=== PATIENT | female | born 1955 | race African-American/Black ===

== ENCOUNTER → 2017-05-07 | Outpatient (CLI) | payer OTHER ==
[2016-06-16 23:02] VITALS: BP 157/98
[~2017-05-07] MED LIST: BRIM5DRO3 EACHEYE; CIPR250T30 PO; ERGO500027 PO; FOLI1TAB16 PO; IOHEXOL 300 MG/ML 75 ML VIAL IV ONE; LATA2.5D3 EACHEYE; LORA10TA3 PO; MAGN400T3 PO; ONDA4TAB10 PO; OXYC30TA PO; PRED5DRO16 EACHEYE; PROAIR HFA8.5 GM INH
--- NOTE | 2017-05-07 12:51 | RAD ---
CT of the abdomen and pelvis with and without contrast, 05/07/2017: History: Abnormal liver enzymes Multidetector CT imaging was performed prior to and following an IV bolus injection of iodinated contrast material. The precontrast scans were obtained through the abdomen. Postcontrast scans of the abdomen were obtained in arterial, portal venous and delayed phases. The portal venous phase scans were extended down into the pelvis. No oral contrast material was administered for this exam. The gallbladder is surgically absent. There is no evidence of hepatic steatosis. There is a tiny 9 x 4 mm subcapsular low density lesion present inferiorly in the right lobe of the liver. This is best demonstrated on image 39 of series #10. It demonstrates a low internal CT number suggesting a cyst. There is an additional tiny 4 mm low-density lesion in the anterior aspect of the right lobe as seen on image 24 series #9. It is too small to definitively characterize but is also probably a cyst. There is no evidence of bile duct dilatation. The pancreas is unremarkable. The spleen is of normal size. No renal or adrenal abnormality is detected. There is moderate aortoiliac calcific plaquing. There is no evidence of aneurysm. No abdominal or pelvic adenopathy is evident. The bowel loops are not dilated. There are surgical sutures in the cecal region. No free fluid or free air is evident in the abdomen or pelvis. IMPRESSION: 1. Probable tiny hepatic cysts. 2. Status post cholecystectomy. 3. No acute abdominal or pelvic abnormality is detected. PQRS Compliance Statement: One or more of the following individualized dose reduction techniques were utilized for this examination: 1. Automated exposure control 2. Adjustment of the mA and/or kV according to patient size 3. Use of iterative reconstruction technique
== END | disposition home or self-care (01) ==
LOC: CT 09:50
PROVIDERS: ATTEND Nurse Practitioner Gerontology
DX: K76.9 Liver disease, unspecified (principal); J45.909 Unspecified asthma, uncomplicated; I10 Essential (primary) hypertension; F17.200 Nicotine dependence, unspecified, uncomplicated
CPT/HCPCS: 74178; Q9967

== ENCOUNTER 2017-05-27 22:19 | Emergency (ER) | payer OTHER ==
[~2017-05-27] VITALS: Ht 162.6 cm; Wt 64.4 kg
[~2017-05-27 22:19] MED LIST changes: -IOHEXOL 300 MG/ML 75 ML VIAL IV ONE
[2017-05-27] MEDS ORDERED: KETOROLAC 15 MG/ML VIAL. IV ONE (23:00)
--- NOTE | 2017-05-28 00:53 | PHYS DOC ---
Past Medical History Past Medical History: Asthma, COPD, GERD, Hypertension, Pneumonia Additional Past Medical Histor: Degenerative Glaucoma, muscle spasms leg/feet, lower back pain Past Surgical History: Cholecystectomy, Hysterectomy Additional Past Surgical Histo: INTESTINE SX Alcohol Use: None Drug Use: None Adult General Chief Complaint Chief Complaint: HIP PAIN HPI HPI 61-year-old female with no prior history of hip or pelvis pain not complaining of pain in the right hip area. Patient states she did not fall or have any known injuries to the area. Her right hip is sore with palpation and movement of the leg. His thigh pain swelling or asymmetry. The leg is not painful at all nor is her buttock or low back. No swelling or skin changes. Review of Systems Review of Systems Constitutional: Denies fever or chills [] Eyes: Denies change in visual acuity, redness, or eye pain [] HENT: Denies nasal congestion or sore throat [] Respiratory: Denies cough or shortness of breath [] Cardiovascular: No additional information not addressed in HPI [] GI: Denies abdominal pain, nausea, vomiting, bloody stools or diarrhea [] : Denies dysuria or hematuria [] Musculoskeletal: Denies back pain or joint pain [] Integument: Denies rash or skin lesions [] Neurologic: Denies headache, focal weakness or sensory changes [] Endocrine: Denies polyuria or polydipsia [] Current Medications Current Medications Current Medications Medications (Trade) Dose Ordered Sig/[facility] Start Time Stop Time Status Last Admin Dose Admin Ketorolac Tromethamine (Toradol) 15 mg 1X ONCE 05/27/17 23:00 05/27/17 23:01 DC 05/28/17 00:02 15 MG Allergies Allergies Allergies Coded Allergies Type Severity Reaction Last Updated Verified aspirin Adverse Reaction Intermediate gi upset 06/16/16 Yes Physical Exam Physical Exam Well-appearing 61-year-old female no acute distress mild soft tissue tenderness over the right iliac crest. No CVA tenderness. No spinal tenderness. No anesthesia. Negative straight leg raise bilaterally. Stable nontender Main or pelvis. No tenderness at the pubic symphysis. Normal patient's range of motion of both hips with no pain or tenderness over the greater trochanters Constitutional: Well developed, well nourished, no acute distress, non-toxic appearance. [] HENT: Normocephalic, atraumatic, bilateral external ears normal, oropharynx moist, no oral exudates, nose normal. [] Eyes: PERRLA, EOMI, conjunctiva normal, no discharge. [] Neck: Normal range of motion, no tenderness, supple, no stridor. [] Cardiovascular:Heart rate regular rhythm, no murmur [] Lungs & Thorax: Bilateral breath sounds clear to auscultation [] Abdomen: Bowel sounds normal, soft, no tenderness, no masses, no pulsatile masses. [] Skin: Warm, dry, no erythema, no rash. [] Back: No tenderness, no CVA tenderness. [] Extremities: No tenderness, no cyanosis, no clubbing, ROM intact, no edema. [] Neurologic: Alert and oriented X 3, normal motor function, normal sensory function, no focal deficits noted. [] Psychologic: Affect normal, judgement normal, mood normal. [] Current Patient Data Vital Signs Vital Signs Date Time Temp Pulse Resp B/P (MAP) Pulse Ox O2 Delivery O2 Flow Rate FiO2 05/28/17 00:05 75 18 126/79 (95) 95 Room Air 05/27/17 22:28 98.5 98.5 EKG EKG [] Radiology/Procedures Radiology/Procedures [] Course & Med Decision Making Course & Med Decision Making Pertinent Labs and Imaging studies reviewed. (See chart for details) Signs and symptoms consistent with soft tissue tenderness and pain of the right iliac crest distribution. Findings are consistent possible subclinical contusion but patient has no ecchymosis swelling hematoma or skin changes. X- rays of pelvis and hip unremarkable. As patient is well-appearing and has no evidence of cauda equina syndrome or radiculopathy, no asymmetry or clinical suggestion of DVT or ramifications thereof, no further workup or treatment is indicated at this time. Patient agrees with outpatient follow-up. Strict return precautions given. [] Dragon Disclaimer Dragon Disclaimer This electronic medical record was generated, in whole or in part, using a voice recognition dictation system. Departure Departure Disposition: 01 HOME, SELF-CARE Condition: STABLE Referrals: UNKNOWN PCP NAME (PCP) Patient Instructions: Hip Pain Additional Instructions: It is not clear what has caused the soft tissue tenderness in her right hip area today. Your pelvis and hip x-rays show no fracture or bony lesion. It is possible that you may have inadvertently caused a contusion or bruise to her right hip area and this may account for her soreness. It even possible that this could've happened from sleeping on the hip did take ibuprofen and Tylenol as needed for pain and follow up with your doctor tomorrow for reevaluation and to discuss the need for further workup or referral as needed. Return immediately for new severe worsening symptoms SUJEY DE LA CRUZ MD May 28, 2017 00:53
[2017-05-28 01:14] VITALS: BP 106/65
--- NOTE | 2017-05-28 07:20 | RAD ---
Two-view right hip study and AP view of the pelvis History: Worsening right hip pain since Thursday morning. Right hip: No acute fracture or dislocation or osteolytic process is seen. No significant arthritic change is seen. Pelvis: Left hip joint is unremarkable. No diastases of the symphysis pubis or either SI joint is seen. No acute fracture or osteolytic process is seen. IMPRESSION: No significant osseous abnormality.
== END 2017-05-28 01:17 | disposition home or self-care (01) ==
LOC: ER 22:19
DX: M25.551 Pain in right hip (principal); M79.89 Other specified soft tissue disorders; J44.9 Chronic obstructive pulmonary disease, unspecified; K21.9 Gastro-esophageal reflux disease without esophagitis; I10 Essential (primary) hypertension; H40.9 Unspecified glaucoma; Z90.49 Acquired absence of other specified parts of digestive tract; Z90.710 Acquired absence of both cervix and uterus; Z87.01 Personal history of pneumonia (recurrent); Z88.6 Allergy status to analgesic agent
CPT/HCPCS: 73502; 96374; 99284; J1885

== ENCOUNTER → 2017-10-26 | Outpatient (CLI) | payer OTHER ==
[2017-10-04 20:08] VITALS: BP 142/85
[~2017-10-26] MED LIST changes: +CYCL10TA2 PO; +HYDR-971 PO; +PRED20TA PO
--- NOTE | 2017-10-26 17:16 | PAIN ---
DATE OF SERVICE: 10/26/2017 DIAGNOSES: 1. Lumbar radiculopathy with lumbar degenerative disk disease. 2. Cervical radiculopathy with cervical degenerative disk disease. HISTORY OF PRESENT ILLNESS: The patient is a 62-year-old female who returns for followup status post previous lumbar epidural steroid injections, last seen 05/28/2016. The patient did very well with about an estimated 50% improvement with her low back and right lower extremity as well as her neck and shoulder pain. The patient reports it has been returning now over the past 6-8 months or so, increasing in intensity, rated a 10 on a scale of 10 at its worst, at its average and at its least and is a 10 on a scale 10 today. The patient reports it is tingling, burning, stabbing, aching, sharp, shooting, unbearable, becoming more severe, worse with standing, walking, change in positions, radiating from pain in the low back and right lower extremity, mostly in the posterior gluteus, posterior thigh, posterior calf in a radicular pattern, the L5-S1 dermatome, even some S2 overlap, also in the bilateral shoulders, neck and upper extremities in a C5-C6 and C6-C7 distribution bilaterally, worse on the right than the left with some tingling and numbness in the hands and some weakness as well with repetitive motion, especially on the right hand. The patient reports it awakens her from sleep at least once or twice a night. She has to reposition, get out of bed, take pain medication she needs to get back to sleep. It is worse with standing, walking, changing positions, also reaching overhead with her neck and shoulders pain as well. The patient reports no loss of motor function, no bowel or bladder incontinence but significant fatigability in both of the upper extremities as well as the right lower extremity. PAST MEDICAL HISTORY: Significant for asthma, cigarette smoking, diarrhea, headaches, arthritis, strokes. PREVIOUS SURGERY: Includes cataract extraction on the right, multiple laser and eye surgeries, bowel obstruction and resection 1997, partial hysterectomy, tendon repair of the wrist, cholecystectomy. CURRENT MEDICATIONS: Reviewed including ProAir inhaler, Zofran, loratadine, vitamin D2, magnesium, and folic acid. ALLERGIES: THE PATIENT IS ALLERGIC TO ASPIRIN. FAMILY HISTORY: Significant for no major conditions she is aware of. SOCIAL HISTORY: The patient smokes still about 8-10 cigarettes a day on average, does not drink alcohol or use any other illegal illicit drugs or other substances. The patient is single, lives with her adopted son who is about 9 years old and lives locally in [place], [place]. REVIEW OF SYSTEMS: Positive for those items mentioned in history of present illness. All systems reviewed and otherwise negative. It is complete, full and well documented on the patient's chart. PHYSICAL EXAMINATION: VITAL SIGNS: Today, the patient's blood pressure is 131/83, pulse 96, respirations are 18, temperature 98.1 degrees Fahrenheit. Height 5 feet 4 inches, weighs 149 pounds. GENERAL: The patient is awake, alert, oriented, appropriate, very pleasant demeanor. HEENT: Shows normocephalic, atraumatic. Extraocular movements are intact, symmetrical. Oral cavity: Mucous membranes moist and pink. Dentition is intact. NECK: Shows anterior throat supple without palpable lymphadenopathy noted. Swallow reflex is symmetrical. CHEST: Shows normal with inspection. Breath sounds clear to auscultation bilaterally. HEART: Shows S1, S2 clear. No murmurs auscultated. ABDOMEN: Soft, nontender, nondistended. No palpable organomegaly is noted. No rebound or guarding demonstrated. BACK: The patient's back shows spine grossly midline. Normal appearing thoracic kyphosis well as lumbar lordotic curvature. No previous bruises, lesions, rashes or scars are noted. The patient's rotational motion shows good rotation greater than 10 degrees, right and left lateral as well as extension and flexion of lumbar spine. Cervical spine shows good rotation past 45 degrees right and left as well as full extension, full forward flexion as well. EXTREMITIES: Show lower extremity deep tendon reflexes at 1+ in the patellar and tendo calcaneus tendons. Upper extremities are 2+ biceps and triceps tendons. Motor exam in the lower extremities is approximately 4 on a scale 5 on the right and 5/5 on the left dorsiflexion, extension, quadriceps and hamstring flexion. Upper extremities show a 4/5 guidance director strength right, 5/5 on the left. Bicep and tricep flexion is 4/5, right and 5/5, left as well. No peripheral edema is noted. No clubbing, no cyanosis. Peripheral pulses are 2+ radial, 1+ posterior tibial. No peripheral edema is noted bilaterally upper or lower extremities. Options were discussed with the patient. The patient's old chart was reviewed as her current medication regimen updated. Current review of systems is updated today as well. We will preauthorize the patient for a lumbar epidural steroid injection as she has done very well with these in the past with about a 6-8 week improvement after the last injection by over 50%, but again the patient with radicular symptoms in the upper and lower extremities in the L5-S1 dermatomes in the low back and right leg and in the C5-C6, C6-C7 dermatomes in the bilateral upper extremities, right greater than left, again with history of degenerative disk disease in both cervical and lumbar regions. The patient has been doing physical therapy on her own. She did do some formal physical therapy about a year and a half ago, is doing the exercises and stretching and strengthening on her own since and I encouraged her to maintain the exercises also to do some walking if she is able to as well as stretching before and after and to continue her therapy exercises as noted. The patient will do so. We will wait for preauthorization and have her return for lumbar epidural steroid injection in approximately 1 week. JEWELS CONCEPCION MD DR: JOAN/judy JOB#: [id number] / [id number] [facility] TRINA ROBERTS NP
== END | disposition home or self-care (01) ==
LOC: PNCL 08:41
PROVIDERS: ATTEND Anesthesiology
DX: M51.16 Intervertebral disc disorders with radiculopathy, lumbar region (principal); Z90.49 Acquired absence of other specified parts of digestive tract; Z86.73 Personal history of transient ischemic attack (TIA), and cerebral infarction without residual deficits
CPT/HCPCS: 99212

== ENCOUNTER → 2017-11-09 | Outpatient (CLI) | payer OTHER ==
[2017-10-04 20:08] VITALS: BP 142/85
[~2017-11-09] MED LIST changes: +IOHEXOL 180 MG/ML 10 ML VIAL. ONE; +methylPREDNISolone ACETATE 40 MG/ML VIAL. ONE; +methylPREDNISolone ACETATE 80 MG/ML VIAL. ONE
--- NOTE | 2017-11-09 10:31 | PN ---
DATE: 11/09/2017 PROGRESS NOTE FOR PAIN CLINIC DIAGNOSES: 1. Lumbar radiculopathy with lumbar degenerative disk disease. 2. Cervical radiculopathy with cervical degenerative disk disease. HISTORY OF PRESENT ILLNESS: The patient is a 62-year-old female who returns for followup status post initial evaluation and preauthorization for lumbar epidural steroid injection today. The patient has obtained this and would like to proceed. Still significant pain in the low back and into the right lower extremity as it was previously, with pain radiating both to the posterior gluteus and thighs, worse on the right than the left, anterior medial thigh as well as the posterior calf and posterior foot. Tingling, burning, stabbing, aching, sharp, tight shooting pain, becoming unbearable and more constant. The patient reports her pain is a 10 on a scale of 10 at its worst, 9 on average and 9 at its least. It is a 9 today. The patient reports no new motor or sensory deficits. No new bowel or bladder continence, but has significant difficulty sleeping and only sleeps one hour at a time, has to reposition, apply heat, get out of bed, change positions or take pain medication. The patient is requesting pain medication today and requests by specifics, oxycodone 30 mg. I informed her that I would not prescribe anything this high for her as we are not seeing her as a long-term patient and would prescribe Percocet for her while we are doing her procedures, while we are treating her, but not on a long-term basis. The patient verbalized understanding and we will proceed with lumbar epidural steroid injection today. PHYSICAL EXAMINATION: VITAL SIGNS: The patient's blood pressure is 136/86, pulse 98, respirations 16 and temperature 98.4 degrees Fahrenheit. Weight 152 pounds. GENERAL: The patient is awake, alert, oriented, appropriate, very pleasant demeanor. HEENT: Head shows normocephalic, atraumatic. Extraocular muscles are intact and symmetrical. Oral cavity, mucous membranes moist and pink. Dentition is intact. NECK: Shows anterior throat supple, without palpable lymphadenopathy noted. Swallow reflex symmetrical. CHEST: Shows normal on inspection. Breath sounds clear to auscultation bilaterally. HEART: Shows S1, S2 clear. No murmurs auscultated. ABDOMEN: Soft, nontender, nondistended. No palpable organomegaly is noted. BACK: Shows spine grossly in the midline. Normal-appearing thoracic kyphosis and lumbar lordotic curvature. No previous bruises, lesions, rashes or scars. Lumbar paraspinous muscle shows symmetrical on inspection. With palpation, it shows moderate tenderness throughout the upper, middle and lower distribution bilaterally, only diffusely without radiation and without trigger points. Good rotational motion both laterally as well as extension and flexion. EXTREMITIES: Lower extremities show deep tendon reflexes at 1+ in the patellar and tendo calcaneus tendons are equal. Motor exam is approximately 4 on a scale of 5 on the right and 5/5 on the left with dorsiflexion and extension. Peripheral pulses are 1+ posterior tibial. No peripheral edema is noted. Options were discussed with the patient. The patient's old chart was reviewed as her current medication regimen updated. Current review of systems updated today as well and we will proceed with a lumbar epidural steroid injection, the first in this series. Risks were again discussed including, but not limited to bleeding, infection, possibility of epidural hematoma, subsequent neurologic compromise, dural puncture, headaches, spinal cord and/or nerve damage, side effects of steroid medication and poor results regarding pain control. The patient understands and wishes to proceed. The patient will return to clinic in approximately 2 weeks for followup, was counseled on return appointment, activity level and side effects to be aware of. DIAGNOSES: Lumbar radiculopathy with lumbar degenerative disk disease. PROCEDURES: Lumbar epidural steroid injection, translaminar approach at the L5-S1 level using C-arm fluoroscopic guidance under sterile prep and drape using local anesthetic. MEDICATION INJECTED: A total of 120 mg Depo-Medrol plus 10 mL of preservative-free normal saline and 2 mL of Isovue for contrast. CONDITION AT DISCHARGE: Stable. The patient tolerated the procedure well, had no complications. The patient was given prescription for Percocet 10/325 with 50 tablets to take q. 4-6 hours on a p.r.n. basis with instructions and side effects to be aware of with the medication as well. JEWELS CONCEPCION MD DR: JOAN/judy JOB#: [id number] / [id number]
== END | disposition home or self-care (01) ==
LOC: PNCL 09:03
PROVIDERS: ATTEND Anesthesiology
DX: M51.16 Intervertebral disc disorders with radiculopathy, lumbar region (principal); M50.10 Cervical disc disorder with radiculopathy, unspecified cervical region; Z79.82 Long term (current) use of aspirin
CPT/HCPCS: 62323; J1030; J1040

== ENCOUNTER → 2017-11-24 | Outpatient (CLI) | payer OTHER ==
[2017-10-04 20:08] VITALS: BP 142/85
[~2017-11-24] MED LIST changes: +LINA145C PO
--- NOTE | 2017-11-24 12:08 | PAIN ---
DATE OF SERVICE: 11/24/2017 PROGRESS NOTE FOR PAIN CLINIC DIAGNOSES: 1. Lumbar radiculopathy with lumbar degenerative disk disease. 2. Cervical radiculopathy with cervical degenerative disk disease. HISTORY OF PRESENT ILLNESS: The patient is a 62-year-old female who returns for followup status post lumbar epidural steroid injection x 1. The patient reports approximately 20% improvement after the last injection, still significant pain in the low back and right leg, especially radiating to the posterior gluteus, posterior thigh, posterior calf and into the foot, also pain in the base of the neck and shoulders, worse on the left side than the right, radiating to posterior triceps into the posterior upper arm as well as anterior upper arm and into the hand involving all the fingers on the left side. The patient reports tingling, burning, sharp, dull, tight, constant, severe, but on and off in intensity in the arm and shoulder as well as the upper extremity, but more constant in the back. The patient reports pain is 8 on a scale of 10 at its worse, on average and at its least and is an 8/10 today. The patient reports it awakens her from sleep about twice a night, between the arm and the left shoulder as well as the leg and low back. The patient reports no new motor or sensory deficits, no new bowel or bladder incontinence or other complaints. PHYSICAL EXAMINATION: VITAL SIGNS: Today, the patient's blood pressure is 133/81, pulse 85, respirations 18, temperature is 98.1 degrees Fahrenheit, height is 5 feet 4 inches, weight is 154 pounds. GENERAL: The patient is awake, alert, oriented, appropriate, very pleasant demeanor. HEENT: Head shows normocephalic, atraumatic. Extraocular movements are intact and symmetrical. Oral cavity: Mucous membranes are moist and pink. Dentition is intact. NECK: Shows anterior throat supple without palpable lymphadenopathy noted. Swallow reflex is symmetrical. CHEST: Shows normal with inspection. Breath sounds are clear to auscultation bilaterally. HEART: Shows S1, S2 clear. No murmurs auscultated. ABDOMEN: Soft, nontender, nondistended. No palpable organomegaly is noted. No rebound or guarding demonstrated. BACK: Shows spine grossly in the midline. Cervical lordotic curvature and lumbar lordotic curvature are well preserved as is thoracic kyphotic curvature. Lumbar paraspinous muscle shows some moderate tenderness only diffusely bilaterally without radiation. Cervical paraspinous muscle shows some moderate tenderness as well in the inferior aspect of the cervical paraspinous muscles as well as the superior medial trapezius, slightly worse on the left than the right, but the patient shows full rotational motion of cervical spine, both laterally as well as extension and flexion without significant difficulty or pain reported. Low back shows good rotation as well, both laterally as well as extension and flexion, though pain reported. EXTREMITIES: Show upper extremity deep tendon reflexes 2+ in the biceps and triceps tendons. Motor exam is strong with re etcher strength at about 4/5 on the left and 5/5 on the right. Lower extremities show deep tendon reflexes at 1+ in the patellar and tendo calcaneus tendons. Motor exam is 4/5 on the right and 5/5 on the left. Peripheral pulses are 2+ radial and 1+ posterior tibial and dorsalis pedis pulses. No peripheral edema is noted in the upper or lower extremities bilaterally. Options were discussed with the patient. The patient's old chart was reviewed as her current medication regimen updated. Current review of systems updated today as well. We will proceed with a second lumbar epidural steroid injection today with fluoroscopic guidance. Risks were again discussed including, but not limited to bleeding, infection, possibility of epidural hematoma, subsequent neurological compromise, dural puncture, headaches, spinal cord and/or nerve damage, side effects of steroid medication and poor results regarding pain control. The patient understands and wished to proceed. The patient will return to clinic in approximately 2 weeks for followup, was counseled as to return appointment, activity level and side effects to be aware of. Also, discussed if the patient's low back and leg is doing better, we will proceed with a cervical epidural steroid injection for significant radicular pain in a C6-C7 dermatome on the left side. We will see how her back does first and see if this is still a problem with her neck and left upper extremity and may proceed with cervical epidural steroid injection if preauthorized. DIAGNOSES: 1. Lumbar radiculopathy with lumbar degenerative disk disease. 2. Cervical radiculopathy with cervical degenerative disk disease. PROCEDURE: Lumbar epidural steroid injection, translaminar approach at the L5-S1 level using C-arm fluoroscopic guidance under sterile prep and drape using local anesthetic. MEDICATION INJECTED: A total of 120 mg Depo-Medrol plus 10 mL of preservative-free normal saline and 2 mL of Isovue for contrast. CONDITION AT DISCHARGE: Stable. The patient tolerated the procedure well, had no complications. JEWELS CONCEPCION MD DR: JOAN/judy JOB#: [id number] / [id number]
== END | disposition home or self-care (01) ==
LOC: PNCL 08:59
PROVIDERS: ATTEND Anesthesiology
DX: M51.16 Intervertebral disc disorders with radiculopathy, lumbar region (principal); M50.10 Cervical disc disorder with radiculopathy, unspecified cervical region; Z88.6 Allergy status to analgesic agent
CPT/HCPCS: 62323; J1030; J1040

== ENCOUNTER → 2017-12-08 | Outpatient (CLI) | payer OTHER | END | disposition home or self-care (01) | LOC: PNCL 09:04 | DX: M51.16 Intervertebral disc disorders with radiculopathy, lumbar region (principal); M50.10 Cervical disc disorder with radiculopathy, unspecified cervical region | CPT/HCPCS: 99212 ==

== ENCOUNTER 2017-12-19 20:59 | Emergency (ER) | payer OTHER ==
[2017-12-19 21:18] LABS: ADD MAN DIFF? NO
[2017-12-19 21:21] LABS: BASO # 0.1 x10^3/uL (0.0-0.2); BASO % 1 % (0-3); EOS % 0 % (0-3); HEMATOCRIT 40.4 % (36.0-47.0); HEMOGLOBIN 13.4 g/dL (12.0-15.5); LYMPH # 4.1 x10^3/uL (1.0-4.8); LYMPH % 30 % (24-48); MEAN CORPUSCULAR HEMOGLOBIN 31 pg (25-35); MEAN CORPUSCULAR HGB CONC 33 g/dL (31-37); MEAN CORPUSCULAR VOLUME 94 fL (79-100); MONO # 1.3 x10^3/uL (0.0-1.1); MONO % 9 % (0-9); NEUT # 8.4 x10^3uL (1.8-7.7); NEUT % 60 % (31-73); PLATELET COUNT 183 x10^3/uL (140-400)
[2017-12-19] MEDS: KETOROLAC 30 MG/ML INJ. IV (21:24)
[2017-12-19] MEDS: HYDROmorphone 2 MG/ML VIAL IV/SQ (21:24)
[2017-12-19] MEDS: IV NORMAL SALINE 1000ML BAG 1,000 ML IV (21:25)
[2017-12-19] MEDS: 0.9 % SODIUM CHLORIDE 10 ML DISP.SYRIN. IV (21:25)
[2017-12-19 21:31] LABS: ANION GAP 13 (6-14); BLOOD UREA NITROGEN 11 mg/dL (7-20); CALCIUM 8.3 mg/dL (8.5-10.1); CARBON DIOXIDE 24 mmol/L (21-32); CHLORIDE 104 mmol/L (98-107); CREATININE 0.9 mg/dL (0.6-1.0); GLUCOSE 143 mg/dL (70-99); POTASSIUM 4.2 mmol/L (3.5-5.1); SODIUM 141 mmol/L (136-145)
[2017-12-19 21:34] LABS: BILIRUBIN,URINE SMALL (NEG); CLARITY,URINE CLEAR; COLOR,URINE AMBER; GLUCOSE,URINE NEGATIVE (NEG); NITRITE,URINE NEGATIVE (NEG); PH,URINE 6.5; PROTEIN,URINE NEGATIVE (NEG-TRACE)
[2017-12-19 21:41] LABS: TROPONINI < 0.017 ng/mL (0.000-0.055)
[2017-12-19 21:42] LABS: ALBUMIN 3.4 g/dL (3.4-5.0); ALK PHOS 98 U/L (46-116); ALT (SGPT) 36 U/L (14-59); AST (SGOT) 22 U/L (15-37); DIRECT BILIRUBIN 0.1 mg/dL (0.0-0.2); LIPASE 112 U/L (73-393); MAGNESIUM 2.1 mg/dL (1.8-2.4); TOTAL BILIRUBIN 0.5 mg/dL (0.2-1.0)
[2017-12-19 21:43] LABS: D-DIMER 0.28 ug/mlFEU (0.00-0.50)
[2017-12-19 21:44] LABS: NT-PRO BNP 48 pg/mL (0-124)
[2017-12-19 21:44] LABS: CKMB MASS < 0.5 ng/mL (0.0-3.6); CREATINE KINASE 62 U/L (26-192)
[2017-12-19 21:45] LABS: THYROID STIM HORMONE (TSH) 0.876 uIU/mL (0.358-3.74)
[2017-12-19 21:49] LABS: BACTERIA,URINE FEW /HPF (0-FEW); RBC,URINE OCC /HPF (0-2); SQUAMOUS EPITHELIAL CELL,UR MOD /LPF
[2017-12-19] MEDS: ONDANSETRON PF 4 MG/2 ML VIAL. IV (22:13)
== END 2017-12-19 22:17 | disposition home or self-care (01) ==
LOC: ER 20:59
DX: J20.9 Acute bronchitis, unspecified (principal); R07.89 Other chest pain; M54.5 Low back pain; R42 Dizziness and giddiness; G89.29 Other chronic pain; E78.00 Pure hypercholesterolemia, unspecified; I10 Essential (primary) hypertension; K21.9 Gastro-esophageal reflux disease without esophagitis; J44.0 Chronic obstructive pulmonary disease with (acute) lower respiratory infection; Z90.710 Acquired absence of both cervix and uterus; Z90.49 Acquired absence of other specified parts of digestive tract; F17.210 Nicotine dependence, cigarettes, uncomplicated; Z88.6 Allergy status to analgesic agent
CPT/HCPCS: 36415; 71046; 80048; 80076; 81001; 82553; 83690; 83735; 83880; 84443; 84484; 85025; 85379; 87086; 93005; 96361; 96374; 96375; 99285-25; J1170; J1885; J2060; J2405; J7030

== ENCOUNTER 2017-12-24 21:05 | Emergency (ER) | payer OTHER ==
[2017-12-24 22:29] LABS: ADD MAN DIFF? NO
[2017-12-24 22:32] LABS: BASO # 0.1 x10^3/uL (0.0-0.2); BASO % 1 % (0-3); EOS % 0 % (0-3); HEMATOCRIT 38.3 % (36.0-47.0); HEMOGLOBIN 12.8 g/dL (12.0-15.5); LYMPH # 3.9 x10^3/uL (1.0-4.8); LYMPH % 30 % (24-48); MEAN CORPUSCULAR HEMOGLOBIN 31 pg (25-35); MEAN CORPUSCULAR HGB CONC 33 g/dL (31-37); MEAN CORPUSCULAR VOLUME 93 fL (79-100); MONO # 0.9 x10^3/uL (0.0-1.1); MONO % 7 % (0-9); NEUT % 62 % (31-73); PLATELET COUNT 209 x10^3/uL (140-400); RED BLOOD COUNT 4.11 x10^6/uL (3.50-5.40); RED CELL DISTRIBUTION WIDTH 16.3 % (11.5-14.5)
[2017-12-24 22:35] LABS: BILIRUBIN,URINE SMALL (NEG); CLARITY,URINE CLEAR; COLOR,URINE ORANGE; GLUCOSE,URINE NEGATIVE (NEG); NITRITE,URINE NEGATIVE (NEG); PH,URINE 5.5; PROTEIN,URINE NEGATIVE (NEG-TRACE)
[2017-12-24] MEDS: MORPHINE SULFATE 4 MG/ML DISP.SYRIN. IV/SQ (22:38)
[2017-12-24] MEDS: FAMOTIDINE 20 MG/2 ML VIAL IVP (22:38)
[2017-12-24] MEDS: ONDANSETRON PF 4 MG/2 ML VIAL. IV (22:38)
[2017-12-24 22:41] LABS: ANION GAP 12 (6-14); BLOOD UREA NITROGEN 13 mg/dL (7-20); BUN/CREATININE RATIO 13 (6-20); CALCIUM 8.7 mg/dL (8.5-10.1); CARBON DIOXIDE 28 mmol/L (21-32); CHLORIDE 102 mmol/L (98-107); GFR 68.2; GLUCOSE 185 mg/dL (70-99); POTASSIUM 3.6 mmol/L (3.5-5.1); SODIUM 142 mmol/L (136-145)
[2017-12-24 22:46] LABS: ALBUMIN 3.1 g/dL (3.4-5.0); ALBUMIN/GLOBULIN RATIO 0.8 (1.0-1.7); ALK PHOS 87 U/L (46-116); ALT (SGPT) 35 U/L (14-59); AST (SGOT) 27 U/L (15-37); LIPASE 95 U/L (73-393); TOTAL BILIRUBIN 0.2 mg/dL (0.2-1.0); TOTAL PROTEIN 7.1 g/dL (6.4-8.2)
[2017-12-24 22:54] LABS: RBC,URINE 0 /HPF (0-2)
[2017-12-24 22:55] LABS: BACTERIA,URINE MODERATE /HPF (0-FEW); HYALINE CASTS, URINE FEW /HPF; SQUAMOUS EPITHELIAL CELL,UR FEW /LPF
== END 2017-12-24 23:55 | disposition home or self-care (01) ==
LOC: ER 23:55
DX: G89.29 Other chronic pain (principal); M54.5 Low back pain; N39.0 Urinary tract infection, site not specified; E86.0 Dehydration; K21.9 Gastro-esophageal reflux disease without esophagitis; E78.00 Pure hypercholesterolemia, unspecified; J44.9 Chronic obstructive pulmonary disease, unspecified; I10 Essential (primary) hypertension; M54.30 Sciatica, unspecified side; M50.30 Other cervical disc degeneration, unspecified cervical region; M51.36 Other intervertebral disc degeneration, lumbar region; H40.9 Unspecified glaucoma; M54.16 Radiculopathy, lumbar region; Z90.49 Acquired absence of other specified parts of digestive tract; Z90.710 Acquired absence of both cervix and uterus; Z88.6 Allergy status to analgesic agent
CPT/HCPCS: 36415; 80053; 81001; 83690; 85025; 87086; 96374; 96375; 99284-25; J2270; J2405; S0028

== ENCOUNTER → 2018-01-20 | Outpatient (CLI) | payer OTHER ==
[~2018-01-20] MED LIST changes: -BRIM5DRO3 EACHEYE; -CIPR250T30 PO; -CYCL10TA2 PO; -ERGO500027 PO; -FOLI1TAB16 PO; -HYDR-971 PO; +IOHEXOL 180 MG/ML 10 ML VIAL.; -IOHEXOL 180 MG/ML 10 ML VIAL. ONE; -LATA2.5D3 EACHEYE; -LINA145C PO; -LORA10TA3 PO; -MAGN400T3 PO; -ONDA4TAB10 PO; -OXYC30TA PO; -PRED20TA PO; -PRED5DRO16 EACHEYE; -PROAIR HFA8.5 GM INH; +methylPREDNISolone ACETATE 40 MG/ML VIAL.; -methylPREDNISolone ACETATE 40 MG/ML VIAL. ONE; +methylPREDNISolone ACETATE 80 MG/ML VIAL.; -methylPREDNISolone ACETATE 80 MG/ML VIAL. ONE
== END | disposition home or self-care (01) ==
LOC: PNCL 08:21
DX: M51.16 Intervertebral disc disorders with radiculopathy, lumbar region (principal); M50.10 Cervical disc disorder with radiculopathy, unspecified cervical region; Z79.82 Long term (current) use of aspirin
CPT/HCPCS: 62323; J1030; J1040; Q9965

== ENCOUNTER 2018-02-13 21:05 | Emergency (ER) | payer OTHER ==
[2018-02-13 21:33] LABS: BILIRUBIN,URINE NEGATIVE (NEG); CLARITY,URINE CLEAR; COLOR,URINE YELLOW; GLUCOSE,URINE NEGATIVE (NEG); NITRITE,URINE NEGATIVE (NEG); PH,URINE 7.5; PROTEIN,URINE NEGATIVE (NEG-TRACE)
[2018-02-13] MEDS: IV NORMAL SALINE 1000ML BAG 1,000 ML IV (21:35)
[2018-02-13 21:40] LABS: ADD MAN DIFF? NO
[2018-02-13] MEDS ORDERED: ONDANSETRON PF 4 MG/2 ML VIAL. (21:40)
[2018-02-13 21:41] LABS: BACTERIA,URINE FEW /HPF (0-FEW); BARBITURATES NEG (NEG); BASO # 0.1 x10^3/uL (0.0-0.2); BASO % 1 % (0-3); BENZODIAZEPINES NEG (NEG); CANNABINOIDS NEG (NEG); COCAINE NEG (NEG); EOS # 0.1 x10^3/uL (0.0-0.7); EOS % 1 % (0-3); HEMATOCRIT 37.1 % (36.0-47.0); HEMOGLOBIN 12.3 g/dL (12.0-15.5); LYMPH # 3.4 x10^3/uL (1.0-4.8); LYMPH % 38 % (24-48); MEAN CORPUSCULAR HEMOGLOBIN 31 pg (25-35); MEAN CORPUSCULAR HGB CONC 33 g/dL (31-37); MEAN CORPUSCULAR VOLUME 93 fL (79-100); METHADONE NEG (NEG); MONO # 0.7 x10^3/uL (0.0-1.1); MONO % 8 % (0-9); NEUT # 4.7 x10^3uL (1.8-7.7); NEUT % 52 % (31-73); OPIATES NEG (NEG); PHENCYCLIDINE NEG (NEG); PLATELET COUNT 177 x10^3/uL (140-400); RBC,URINE 0 /HPF (0-2); RED BLOOD COUNT 3.98 x10^6/uL (3.50-5.40); RED CELL DISTRIBUTION WIDTH 15.8 % (11.5-14.5); SQUAMOUS EPITHELIAL CELL,UR FEW /LPF; WBC,URINE 0 /HPF (0-4)
[2018-02-13 21:42] LABS: AMPHETAMINE/METHAMPHETAMINE NEG (NEG); ETHANOL, URINE NEG (NEG)
[2018-02-13] MEDS: ONDANSETRON PF 4 MG/2 ML VIAL. IV (21:42)
[2018-02-13 22:00] LABS: ANION GAP 10 (6-14); BLOOD UREA NITROGEN 9 mg/dL (7-20); BUN/CREATININE RATIO 10 (6-20); CALCIUM 8.6 mg/dL (8.5-10.1); CARBON DIOXIDE 25 mmol/L (21-32); CHLORIDE 108 mmol/L (98-107); CREATININE 0.9 mg/dL (0.6-1.0); GLUCOSE 98 mg/dL (70-99); POTASSIUM 4.1 mmol/L (3.5-5.1); SODIUM 143 mmol/L (136-145)
[2018-02-13 22:00] LABS: TROPONINI < 0.017 ng/mL (0.000-0.055)
[2018-02-13 22:05] LABS: ALBUMIN/GLOBULIN RATIO 0.8 (1.0-1.7); ALK PHOS 79 U/L (46-116); ALT (SGPT) 26 U/L (14-59); AST (SGOT) 20 U/L (15-37); TOTAL BILIRUBIN 0.3 mg/dL (0.2-1.0); TOTAL PROTEIN 6.8 g/dL (6.4-8.2)
[2018-02-13 22:06] LABS: THYROID STIM HORMONE (TSH) 0.893 uIU/mL (0.358-3.74)
[2018-02-13] MEDS: MECLIZINE HCL 12.5 MG TABLET. PO (22:24)
== END 2018-02-13 23:13 | disposition home or self-care (01) ==
LOC: ER 21:05
DX: R42 Dizziness and giddiness (principal); E78.00 Pure hypercholesterolemia, unspecified; J44.9 Chronic obstructive pulmonary disease, unspecified; K21.9 Gastro-esophageal reflux disease without esophagitis; I10 Essential (primary) hypertension; Z90.710 Acquired absence of both cervix and uterus; Z90.49 Acquired absence of other specified parts of digestive tract; Z88.6 Allergy status to analgesic agent
CPT/HCPCS: 36415; 70450; 71045; 80053; 80307; 81001; 84443; 84484; 85025; 93005; 96361; 96374; 99285-25; J2405; J7030; J8597

== ENCOUNTER → 2018-05-10 | Outpatient (CLI) | payer OTHER | END | disposition home or self-care (01) | LOC: PNCL 10:36 | DX: M51.16 Intervertebral disc disorders with radiculopathy, lumbar region (principal) | CPT/HCPCS: 99212 ==

== ENCOUNTER → 2018-05-24 | Outpatient (CLI) | payer OTHER ==
[~2018-05-24] MED LIST changes: +LIDOCAINE 1% PF 2 ML VIAL.
== END ==
LOC: PNCL 09:18
DX: M51.16 Intervertebral disc disorders with radiculopathy, lumbar region (principal); M50.10 Cervical disc disorder with radiculopathy, unspecified cervical region
CPT/HCPCS: 62323; J1030; J1040; Q9965

== ENCOUNTER → 2018-06-07 | Outpatient (CLI) | payer OTHER | END | disposition home or self-care (01) | LOC: PNCL 08:55 | DX: M51.16 Intervertebral disc disorders with radiculopathy, lumbar region (principal); M50.10 Cervical disc disorder with radiculopathy, unspecified cervical region; I10 Essential (primary) hypertension; E78.5 Hyperlipidemia, unspecified; J44.9 Chronic obstructive pulmonary disease, unspecified | CPT/HCPCS: 99212 ==

== ENCOUNTER 2018-08-10 15:20 | Inpatient (IN) | payer OTHER ==
[~2018-08-10] VITALS: Ht 162.6 cm; Wt 73.7 kg
[~2018-08-10 15:20] MED LIST changes: +AZIT250T6 PO; +BRIM5DRO3 EACHEYE; +CIPR250T30 PO; +CYCL10TA2 PO; +DILT60TA3 PO; +ERGO500027 PO; +FOLI1TAB16 PO; +HYDR-971 PO; -IOHEXOL 180 MG/ML 10 ML VIAL.; +LATA2.5D3 EACHEYE; -LIDOCAINE 1% PF 2 ML VIAL.; +LINA145C PO; +LORA10TA3 PO; +MAGN400T3 PO; +MECL25TA3 PO; +NAPR-683 PO; +NITR100C62 PO; +ONDA4TAB10 PO; +OXYC-328 PO; +OXYC30TA PO; +PRED20TA PO; +PRED5DRO16 EACHEYE; +PROAIR HFA8.5 GM INH; -methylPREDNISolone ACETATE 40 MG/ML VIAL.; -methylPREDNISolone ACETATE 80 MG/ML VIAL.
[2018-08-10 17:46] LABS: BILIRUBIN,URINE SMALL (NEG); CLARITY,URINE CLEAR; NITRITE,URINE NEGATIVE (NEG); PH,URINE 5.5; PROTEIN,URINE NEGATIVE (NEG-TRACE); UROBILINOGEN,URINE 0.2 mg/dL (0.2 mg/dL)
[2018-08-10 17:53] LABS: COLOR,URINE DK YELLOW
[2018-08-10 17:56] LABS: BACTERIA,URINE FEW /HPF (0-FEW); RBC,URINE 0 /HPF (0-2); SQUAMOUS EPITHELIAL CELL,UR FEW /LPF; WBC,URINE RARE /HPF (0-4)
[2018-08-10 17:57] LABS: FECAL OB PT POSITIVE (NEG)
--- NOTE | 2018-08-10 18:09 | PHYS DOC ---
Past Medical History Past Medical History: Asthma, COPD, GERD, High Cholesterol, Hypertension, Pneumonia, Sciatica Additional Past Medical Histor: Degenerative Glaucoma, muscle spasms leg/feet, lower back pain Past Surgical History: Cholecystectomy, Hysterectomy Additional Past Surgical Histo: INTESTINE SX, RIGHT OVARY Alcohol Use: None Drug Use: None Adult General Chief Complaint Chief Complaint: OTHER COMPLAINTS HPI HPI 63-year-old female presents to ER for complaints of some day history of intermittent bleeding. Patient reports she is unsure if it is rectal or vaginal bleeding when she uses the toilet she is have bright red blood in it. She reports she has had intermittent dizziness and generalized fatigue. She reports on Thursday she had 15 min. episode of mid CP which subsided and hasn't reoccurred since. She denies any SOA. She reports she has felt nauseated denying V/D episodes. She reports she has had some increase in lt lower chronic back pain which has radiated in past couple of days into her left side. She denies abd distention. She denies urinary sxs, fever/chills, or swelling in extremities. She reports she takes 81mg aspirin daily. She denies other blood thinners. She reports past hx of bowel resection- denies ulcers/GI bleeds. She denies any recent travel. Review of Systems Review of Systems Constitutional: Denies fever or chills. Reports generalized fatigue Eyes: Denies change in visual acuity, redness, or eye pain [] HENT: Denies nasal congestion or sore throat [] Respiratory: Denies cough or shortness of breath [] Cardiovascular: Reports mid CP on Thursday GI: Denies vomiting or diarrhea. Reports lt side abd pain into lt lower back. Reports intermittent nausea. Denies distention : Denies dysuria. Reports uncertain is having vaginal bleeding versus rectal bleeding Musculoskeletal: Reports chronic lower back pain with increase in past 1 wk lt lower back pain Integument: Denies swelling, rash or skin lesions [] Neurologic: Denies headache, focal weakness or sensory changes. Reports intermittent dizziness. All other systems were reviewed and found to be within normal limits, except as documented in this note. Current Medications Current Medications Current Medications Medications (Trade) Dose Ordered Sig/Steven Start Time Stop Time Status Last Admin Dose Admin Fentanyl Citrate (Fentanyl 2ml Vial) 25 mcg 1X ONCE 08/10/18 18:15 08/10/18 18:22 DC 9/11/18 18:27 25 MCG Iohexol (Omnipaque 300 Mg/ml) 75 ml 1X ONCE 08/10/18 18:30 08/10/18 18:32 DC 08/10/18 18:44 75 ML Allergies Allergies Allergies Coded Allergies Type Severity Reaction Last Updated Verified aspirin Adverse Reaction Intermediate gi upset 06/16/16 Yes Physical Exam Physical Exam Constitutional: Well developed, well nourished, no acute distress, non-toxic appearance. Appears fatigued on initial exam HENT: Normocephalic, atraumatic, bilateral ears normal, mucous membranes pink/ dry, no oral exudates, nose normal. [] Eyes: PERRLA, no nystagmus, conjunctiva normal, no discharge. [] Neck: Normal range of motion, no tenderness, supple Cardiovascular:Heart rate regular rhythm, no murmur [] Lungs & Thorax: Bilateral breath sounds clear to auscultation. Resp. equal/ nonlabored Abdomen: Bowel sounds normal, diffuse tenderness in left side abd into lt flank - no distention, no masses, no pulsatile masses. [] Skin: Warm, dry, no erythema, no rash. [] Back: No tenderness, mild lt side CVA tenderness Extremities: No tenderness, no cyanosis, no clubbing, ROM intact, no edema. [] Neurologic: Alert and oriented X 3, normal motor function, normal sensory function, no focal deficits noted. [] Psychologic: Affect normal, judgement normal, mood normal. [] Rectal exam completed by this provider- external hemorrhoid soft/non thrombosed. No rash/erythema. Rectal tone NL. No gross blood. No fecal impaction Current Patient Data Vital Signs Vital Signs Date Time Temp Pulse Resp B/P (MAP) Pulse Ox O2 Delivery O2 Flow Rate FiO2 08/10/18 18:27 16 95 Room Air 08/10/18 16:40 98.1 99 144/94 (111) 98.1 Lab Values Laboratory Tests Test 08/10/18 17:20 08/10/18 17:45 08/10/18 18:04 Urine Collection Type Unknown Urine Color Dk yellow Urine Clarity Clear Urine pH 5.5 Urine Specific [place] 1.025 Urine Protein Negative mg/dL (NEG-TRACE) Urine Glucose (UA) Negative mg/dL (NEG) Urine Ketones (Stick) Negative mg/dL (NEG) Urine Blood Negative (NEG) Urine Nitrite Negative (NEG) Urine Bilirubin Small (NEG) Urine Urobilinogen Dipstick 0.2 mg/dL (0.2 mg/dL) Urine Leukocyte Esterase Negative (NEG) Urine RBC 0 /HPF (0-2) Urine WBC Rare /HPF (0-4) Urine Squamous Epithelial Cells Few /LPF Urine Bacteria Few /HPF (0-FEW) Urine Mucus Mod /LPF Stool Occult Blood Positive (NEG) White Blood Count 9.4 x10^3/uL (4.0-11.0) Red Blood Count 4.21 x10^6/uL (3.50-5.40) Hemoglobin 13.0 g/dL (12.0-15.5) Hematocrit 38.4 % (36.0-47.0) Mean Corpuscular Volume 91 fL (79-100) Mean Corpuscular Hemoglobin 31 pg (25-35) Mean Corpuscular Hemoglobin Concent 34 g/dL (31-37) Red Cell Distribution Width 15.0 % (11.5-14.5) H Platelet Count 234 x10^3/uL (140-400) Neutrophils (%) (Auto) 59 % (31-73) Lymphocytes (%) (Auto) 32 % (24-48) Monocytes (%) (Auto) 9 % (0-9) Eosinophils (%) (Auto) 1 % (0-3) Basophils (%) (Auto) 1 % (0-3) Neutrophils # (Auto) 5.5 x10^3uL (1.8-7.7) Lymphocytes # (Auto) 3.0 x10^3/uL (1.0-4.8) Monocytes # (Auto) 0.8 x10^3/uL (0.0-1.1) Eosinophils # (Auto) 0.1 x10^3/uL (0.0-0.7) Basophils # (Auto) 0.1 x10^3/uL (0.0-0.2) Prothrombin Time 12.1 SEC (11.7-14.0) Prothrombin Time INR 0.9 (0.8-1.1) PTT 30 SEC (24-38) Sodium Level 140 mmol/L (136-145) Potassium Level 3.7 mmol/L (3.5-5.1) Chloride Level 106 mmol/L (98-107) Carbon Dioxide Level 27 mmol/L (21-32) Anion Gap 7 (6-14) Blood Urea Nitrogen 5 mg/dL (7-20) L Creatinine 1.1 mg/dL (0.6-1.0) H Estimated GFR (Cockcroft-Gault) 60.9 BUN/Creatinine Ratio 5 (6-20) L Glucose Level 97 mg/dL (70-99) Calcium Level 9.2 mg/dL (8.5-10.1) Magnesium Level 2.2 mg/dL (1.8-2.4) Total Bilirubin 0.2 mg/dL (0.2-1.0) Aspartate Amino Transferase (AST) 18 U/L (15-37) Alanine Aminotransferase (ALT) 19 U/L (14-59) Alkaline Phosphatase 99 U/L (46-116) Troponin I Quantitative < 0.017 ng/mL (0.000-0.055) Total Protein 7.1 g/dL (6.4-8.2) Albumin 3.0 g/dL (3.4-5.0) L Albumin/Globulin Ratio 0.7 (1.0-1.7) L Lipase 104 U/L (73-393) Laboratory Tests 08/10/18 18:04 Laboratory Tests 08/10/18 18:04 EKG EKG EKG obtained 08/10/18 at [address] Agarwal Sinus rhythm Prolonged QT Vent rate 90 Radiology/Procedures Radiology/Procedures PROCEDURE: CT ABD PELV W/ IV CONTRST ONLY PQRS Compliance statement: One or more of the following individualized dose reduction techniques were utilized for this examination: 1. Automated exposure control. 2. Adjustment of the mA and/or kV according to patient size. 3. Use of iterative reconstruction technique. Indication:lt side abd pain, blood in stool, [id number] 75ml, prior sent TECHNIQUE: CT abdomen and pelvis with IV contrast with multiplanar reformats. COMPARISON: 05/07/2017 FINDINGS: Heart is normal in size. No pericardial or pleural effusion. Visualized lung apices are clear. Liver, spleen, pancreas, adrenals within normal limits. Status post cholecystectomy. No nephrolithiasis or hydronephrosis. No enlarged retroperitoneal or pelvic adenopathy. No free pelvic fluid or ascites. Long segment circumferential wall thickening of the descending and rectosigmoid colon seen. Status post appendectomy. Moderate diffuse atherosclerotic calcifications of the infrarenal aorta and bilateral iliac arteries. Hyperemia seen in the pelvis. Status post hysterectomy. Urinary bladder demonstrates no radiopaque stones. No suspicious bony lesion. IMPRESSION: Long segment colitis involving descending colon and rectosigmoid colon. Electronically signed by: Rey Padilla DO (08/10/2018 6:59 PM) [facility] DICTATED and SIGNED BY: REY PADILLA DO DATE: 08/10/18 292 Course & Med Decision Making Course & Med Decision Making Pertinent Labs and Imaging studies reviewed. (See chart for details) Lab and CT results discussed with pt along with admission and she is agreeable with plan- pt's abd/pelvis CT results showed "Long segment colitis involving descending colon and rectosigmoid colon". Pt was +fecal occult. WBCs NL at 9.4 with stable H&H at 13.0/38.4. EKG with no acute ST elevation/STEMI and troponin <0.017. Will provide additional dose of pain meds and get IV flagyl/levaquin started for pt's dx'd colitis. Pt remains nontoxic in appearance. Pt has received IV flds/pain meds while in ER and during re-eval requested additional dose of Fentanyl. Pt's case and plan of care discussed with Dr. Lino, hospitalist- will admit to their services for further care along with GI consult.. [place]acia Disclaimer Dragon Disclaimer This electronic medical record was generated, in whole or in part, using a voice recognition dictation system. Departure Departure Impression: Primary Impression: Colitis Additional Impression: Abdominal pain Disposition: ADMITTED INPATIENT Admitting Physician: Mellissa Lino Condition: STABLE Referrals: [facility] POISON INFORMATION SPECIALIST (PCP) Problem Qualifiers KIKI TUBBS CLINICAL TEAM MANAGER Aug 10, 2018 18:09
[2018-08-10 18:14] LABS: BASO # 0.1 x10^3/uL (0.0-0.2); BASO % 1 % (0-3); EOS # 0.1 x10^3/uL (0.0-0.7); EOS % 1 % (0-3); HEMATOCRIT 38.4 % (36.0-47.0); LYMPH % 32 % (24-48); MEAN CORPUSCULAR HEMOGLOBIN 31 pg (25-35); MEAN CORPUSCULAR HGB CONC 34 g/dL (31-37); MEAN CORPUSCULAR VOLUME 91 fL (79-100); MONO # 0.8 x10^3/uL (0.0-1.1); MONO % 9 % (0-9); NEUT # 5.5 x10^3uL (1.8-7.7); NEUT % 59 % (31-73); PLATELET COUNT 234 x10^3/uL (140-400); RED BLOOD COUNT 4.21 x10^6/uL (3.50-5.40); WHITE BLOOD COUNT 9.4 x10^3/uL (4.0-11.0)
[2018-08-10] MEDS ORDERED: fentaNYL PF VIAL 100 MCG/2 ML VIAL IV ONE ×2 (18:15→19:45)
--- NOTE | 2018-08-10 18:16 | EKG ---
[facility] [address] [place] [address] Test Date: 2018-08-10 Test Time: 18:13:00 Pat Name: RUBI JAMESON Department: Room: Gender: F Director Of [employer]: [place] : [id number] Requested By: KIKI TUBBS Order Number: [id number] Reading MD: Jason Banuelos MD Measurements Intervals [place] Rate: 90 P: 49 CT: 138 QRS: 50 QRSD: 74 T: 77 QT: 386 QTc: 477 Interpretive Statements SINUS RHYTHM PROLONGED QT Electronically Signed On 08-12-2018 13:40:25 CDT by Jason Banuelos MD
[2018-08-10 18:23] LABS: CALCIUM 9.2 mg/dL (8.5-10.1); CREATININE 1.1 mg/dL (0.6-1.0); GFR 60.9; POTASSIUM 3.7 mmol/L (3.5-5.1)
[2018-08-10 18:29] LABS: ALBUMIN/GLOBULIN RATIO 0.7 (1.0-1.7); MAGNESIUM 2.2 mg/dL (1.8-2.4); TOTAL BILIRUBIN 0.2 mg/dL (0.2-1.0); TOTAL PROTEIN 7.1 g/dL (6.4-8.2)
[2018-08-10] MEDS ORDERED: IOHEXOL 300 MG/ML 100ML VIAL. IV ONE (18:30)
[2018-08-10 18:33] LABS: PROTHROMBIN TIME PATIENT 12.1 SEC (11.7-14.0)
--- NOTE | 2018-08-10 19:02 | RAD ---
PQRS Compliance statement: One or more of the following individualized dose reduction techniques were utilized for this examination: 1. Automated exposure control. 2. Adjustment of the mA and/or kV according to patient size. 3. Use of iterative reconstruction technique. Indication:lt side abd pain, blood in stool, [id number] 75ml, prior sent TECHNIQUE: CT abdomen and pelvis with IV contrast with multiplanar reformats. COMPARISON: 05/07/2017 FINDINGS: Heart is normal in size. No pericardial or pleural effusion. Visualized lung apices are clear. Liver, spleen, pancreas, adrenals within normal limits. Status post cholecystectomy. No nephrolithiasis or hydronephrosis. No enlarged retroperitoneal or pelvic adenopathy. No free pelvic fluid or ascites. Long segment circumferential wall thickening of the descending and rectosigmoid colon seen. Status post appendectomy. Moderate diffuse atherosclerotic calcifications of the infrarenal aorta and bilateral iliac arteries. Hyperemia seen in the pelvis. Status post hysterectomy. Urinary bladder demonstrates no radiopaque stones. No suspicious bony lesion. IMPRESSION: Long segment colitis involving descending colon and rectosigmoid colon. Electronically signed by: Rey Padilla DO (08/10/2018 6:59 PM) [facility]
[2018-08-10] MEDS ORDERED: IV NORMAL SALINE 1000ML BAG 1,000 ML IV ONE (19:45)
[2018-08-10] MEDS ORDERED: IV NORMAL SALINE 1000ML BAG 1,000 ML IV SCH (19:46)
[2018-08-10] MEDS ORDERED: fentaNYL PF VIAL 100 MCG/2 ML VIAL IV PRN (20:00)
[2018-08-10] MEDS ORDERED: levOFLOXacin PER PHARMACY. MC PRN (20:30)
[2018-08-10] MEDS ORDERED: NON FORMULARY ITEM (Albuterol Sulfate (Proair Hfa Inhaler) 1 PUFF) INH PRN ×2 (20:30)
[2018-08-10] MEDS ORDERED: ACETAMINOPHEN 500 MG TABLET PO PRN (20:30)
[2018-08-10] MEDS ORDERED: ACETAMINOPHEN/CODEINE 300/30MG TABLET. PO PRN (20:30)
[2018-08-10] MEDS ORDERED: PANTOPRAZOLE IV PUSH 40 MG VIAL. IVP ONE (20:30)
[2018-08-10] MEDS ORDERED: ONDANSETRON ODT 4 MG TAB.RAPDIS. PO PRN (20:30)
--- NOTE | 2018-08-10 20:30 | PDOC1 ---
History and Physical Date of Admission Date of Admission DATE: 08/10/18 TIME: 20:25 Identification/Chief Complaint Chief Complaint bloody BM x 7 days Source Source: Caregiver, Chart review, Patient History of Present Illness History of Present Illness 63 AA female, just on ASA 81 as preventative, 7 day hx bloody BM, fatigued, some abd pain, no emesis, loose stools from blood, unsure about fevers, went to ER. HGB and VS ok but CT shows Long segment colitis involving descending colon and rectosigmoid colon. Hc c scope 1 yr ago by ARVIND, " ok", admitted and started on empiric abx NOn toxic abd/appearing but looks weak NOt much bloody bM today HX bowel resection February 2018 here at [facility] for "nicked bowel" after ovarian sx Past Medical History Cardiovascular: HTN CENTRAL NERVOUS SYSTEM: Vertigo Past Surgical History Past Surgical History: Colon Resection, Other Family History Family History: Hypertension Social History Smoke: No ALCOHOL: occassional Drugs: None Current Medications Current Medications Current Medications Fentanyl Citrate (Fentanyl 2ml Vial) 25 mcg 1X ONCE IV Last administered on 10/17at 18:27; Start 08/10/18 at 18:15; Stop 08/10/18 at 18:22; Status DC Iohexol (Omnipaque 300 Mg/ml) 75 ml 1X ONCE IV Last administered on 08/10/18at 18:44; Start 08/10/18 at 18:30; Stop 08/10/18 at 18:32; Status DC Metronidazole 100 ml @ 100 mls/hr 1X ONCE IV ; Start 08/10/18 at 19:45; Stop 08/10/18 at 20:44 Levofloxacin/ Dextrose 150 ml @ 100 mls/hr 1X ONCE IV ; Start 08/10/18 at 19: 45; Stop 08/10/18 at 21:14 Fentanyl Citrate (Fentanyl 2ml Vial) 50 mcg 1X ONCE IV ; Start 08/10/18 at 19: 45; Stop 08/10/18 at 19:46; Status DC Sodium Chloride 1,000 ml @ 1,000 mls/hr 1X ONCE IV ; Start 08/10/18 at 19:45; Stop 08/10/18 at 20:44 Fentanyl Citrate (Fentanyl 2ml Vial) 50 mcg PRN Q3HRS PRN IV PAIN; Start at 20:00; Stop 08/11/18 at 19:59 Sodium Chloride 1,000 ml @ 100 drops/ hr Q24H IV ; Start 08/10/18 at 19:46; Stop 08/10/18 at 20:15; Status DC Sodium Chloride 1,000 ml @ 100 mls/hr Q10H IV ; Start 08/10/18 at 20:30; Status UNV Levofloxacin/ Dextrose (Levaquin Per Pharmacy) 1 each PRN DAILY PRN MC SEE COMMENTS; Start 08/10/18 at 20:30; Status UNV Pantoprazole Sodium (PROTONIX VIAL for IV PUSH) 40 mg DAILYAC IVP ; Start at 07:30; Status UNV Pantoprazole Sodium (PROTONIX VIAL for IV PUSH) 40 mg 1X ONCE IVP ; Start 08/10 at 20:30; Stop 08/10/18 at 20:31; Status UNV Acetaminophen/ Codeine Phosphate (Tylenol #3) 1 tab PRN Q6HRS PRN PO PAIN; Start 08/10/18 at 20:30; Status UNV Acetaminophen (Tylenol) 500 mg PRN Q6HRS PRN PO MILD PAIN / TEMP; Start at 20:30; Status UNV Ondansetron HCl (Zofran) 4 mg PRN Q6HRS PRN IV NAUSEA/VOMITING; Start 08/10/18 at 20:30; Status UNV Ondansetron HCl (Zofran Odt) 4 mg PRN Q6HRS PRN PO NAUSEA/VOMITING; Start 08/10 at 20:30; Status UNV Active Scripts Active Meclizine Hcl 25 Mg Tablet 25 Mg PO Q6-8HRS PRN Macrobid 100 Mg Capsule (Nitrofurantoin Monohyd/M-Cryst) 100 Mg Capsule 1 Cap PO BID Proair Hfa Inhaler (Albuterol Sulfate) 8.5 Gm Hfa.aer.ad 1 Puff INH PRN Q6HRS PRN 5 Days Reported Cardizem Tablet (Diltiazem Hcl) 60 Mg Tablet 60 Mg PO BID Percocet 10-325 Mg Tablet (Oxycodone/Acetaminophen) 1 Each Tablet 1 Tab PO Q4- 6HRS Linzess (Linaclotide) 145 Mcg Capsule 145 Mcg PO Proair Hfa Inhaler (Albuterol Sulfate) 8.5 Gm Hfa.aer.ad 1 Puff INH PRN Q6HRS PRN Zofran Odt (Ondansetron) 4 Mg Tab.rapdis 4 Mg PO BID PRN Loratadine 10 Mg Tablet 10 Mg PO DAILY Folic Acid 1 Mg Tablet 1 Tab PO DAILY Magnesium Oxide 400 Mg Tablet 400 Mg PO DAILY Vitamin D2 (Ergocalciferol (Vitamin D2)) 50,000 Unit Capsule 1 Cap PO WEEKLY Allergies Allergies: Coded Allergies: aspirin (Verified Adverse Reaction, Intermediate, gi upset, 06/16/16) ROS Review of System as per HPI 14 pt neg Physical Exam General: Oriented X3, Cooperative, No acute distress, Other (looks tired/ fatigued) HEENT: PERRLA Lungs: Clear to auscultation, Normal air movement Heart: no gallops, no murmurs Cardiovascular: S1 Breasts: Normal, Rt breast nml w/o mass, Lt breast nml w/o mass, Nipples normal Abdomen: Normal bowel sounds, Soft, No tenderness, No hepatosplenomegaly, No masses Rectal Exam: not examined PELVIC: Nml ext genitalia Extremities: No clubbing, No cyanosis, No edema, Normal pulses, No tenderness/ swelling Skin: No rashes, No breakdown, No significant lesion Neuro: Normal gait, Normal speech, Strength at 5/5 X4 ext, Normal tone, Sensation intact, Cranial nerves 3-12 NL, Reflexes 2+ Psych/Mental Status: Mental status NL, Mood NL Vitals Vitals Vital Signs Date Time Temp Pulse Resp B/P (MAP) Pulse Ox O2 Delivery O2 Flow Rate FiO2 08/10/18 18:27 16 95 Room Air 08/10/18 16:40 98.1 99 144/94 (111) 98.1 Labs Labs Laboratory Tests Test 08/10/18 17:20 08/10/18 17:45 08/10/18 18:04 Urine Collection Type Unknown Urine Color Dk yellow Urine Clarity Clear Urine pH 5.5 Urine Specific [place] 1.025 Urine Protein Negative mg/dL (NEG-TRACE) Urine Glucose (UA) Negative mg/dL (NEG) Urine Ketones (Stick) Negative mg/dL (NEG) Urine Blood Negative (NEG) Urine Nitrite Negative (NEG) Urine Bilirubin Small (NEG) Urine Urobilinogen Dipstick 0.2 mg/dL (0.2 mg/dL) Urine Leukocyte Esterase Negative (NEG) Urine RBC 0 /HPF (0-2) Urine WBC Rare /HPF (0-4) Urine Squamous Epithelial Cells Few /LPF Urine Bacteria Few /HPF (0-FEW) Urine Mucus Mod /LPF Stool Occult Blood Positive (NEG) White Blood Count 9.4 x10^3/uL (4.0-11.0) Red Blood Count 4.21 x10^6/uL (3.50-5.40) Hemoglobin 13.0 g/dL (12.0-15.5) Hematocrit 38.4 % (36.0-47.0) Mean Corpuscular Volume 91 fL (79-100) Mean Corpuscular Hemoglobin 31 pg (25-35) Mean Corpuscular Hemoglobin Concent 34 g/dL (31-37) Red Cell Distribution Width 15.0 % (11.5-14.5) Platelet Count 234 x10^3/uL (140-400) Neutrophils (%) (Auto) 59 % (31-73) Lymphocytes (%) (Auto) 32 % (24-48) Monocytes (%) (Auto) 9 % (0-9) Eosinophils (%) (Auto) 1 % (0-3) Basophils (%) (Auto) 1 % (0-3) Neutrophils # (Auto) 5.5 x10^3uL (1.8-7.7) Lymphocytes # (Auto) 3.0 x10^3/uL (1.0-4.8) Monocytes # (Auto) 0.8 x10^3/uL (0.0-1.1) Eosinophils # (Auto) 0.1 x10^3/uL (0.0-0.7) Basophils # (Auto) 0.1 x10^3/uL (0.0-0.2) Prothrombin Time 12.1 SEC (11.7-14.0) Prothromb Time International Ratio 0.9 (0.8-1.1) Activated Partial Thromboplast Time 30 SEC (24-38) Sodium Level 140 mmol/L (136-145) Potassium Level 3.7 mmol/L (3.5-5.1) Chloride Level 106 mmol/L (98-107) Carbon Dioxide Level 27 mmol/L (21-32) Anion Gap 7 (6-14) Blood Urea Nitrogen 5 mg/dL (7-20) Creatinine 1.1 mg/dL (0.6-1.0) Estimated GFR (Cockcroft-Gault) 60.9 BUN/Creatinine Ratio 5 (6-20) Glucose Level 97 mg/dL (70-99) Calcium Level 9.2 mg/dL (8.5-10.1) Magnesium Level 2.2 mg/dL (1.8-2.4) Total Bilirubin 0.2 mg/dL (0.2-1.0) Aspartate Amino Transf (AST/SGOT) 18 U/L (15-37) Alanine Aminotransferase (ALT/SGPT) 19 U/L (14-59) Alkaline Phosphatase 99 U/L (46-116) Troponin I Quantitative < 0.017 ng/mL (0.000-0.055) Total Protein 7.1 g/dL (6.4-8.2) Albumin 3.0 g/dL (3.4-5.0) Albumin/Globulin Ratio 0.7 (1.0-1.7) Lipase 104 U/L (73-393) Laboratory Tests Test 08/10/18 17:20 08/10/18 17:45 08/10/18 18:04 Urine Collection Type Unknown Urine Color Dk yellow Urine Clarity Clear Urine pH 5.5 Urine Specific [place] 1.025 Urine Protein Negative mg/dL (NEG-TRACE) Urine Glucose (UA) Negative mg/dL (NEG) Urine Ketones (Stick) Negative mg/dL (NEG) Urine Blood Negative (NEG) Urine Nitrite Negative (NEG) Urine Bilirubin Small (NEG) Urine Urobilinogen Dipstick 0.2 mg/dL (0.2 mg/dL) Urine Leukocyte Esterase Negative (NEG) Urine RBC 0 /HPF (0-2) Urine WBC Rare /HPF (0-4) Urine Squamous Epithelial Cells Few /LPF Urine Bacteria Few /HPF (0-FEW) Urine Mucus Mod /LPF Stool Occult Blood Positive (NEG) White Blood Count 9.4 x10^3/uL (4.0-11.0) Red Blood Count 4.21 x10^6/uL (3.50-5.40) Hemoglobin 13.0 g/dL (12.0-15.5) Hematocrit 38.4 % (36.0-47.0) Mean Corpuscular Volume 91 fL (79-100) Mean Corpuscular Hemoglobin 31 pg (25-35) Mean Corpuscular Hemoglobin Concent 34 g/dL (31-37) Red Cell Distribution Width 15.0 % (11.5-14.5) Platelet Count 234 x10^3/uL (140-400) Neutrophils (%) (Auto) 59 % (31-73) Lymphocytes (%) (Auto) 32 % (24-48) Monocytes (%) (Auto) 9 % (0-9) Eosinophils (%) (Auto) 1 % (0-3) Basophils (%) (Auto) 1 % (0-3) Neutrophils # (Auto) 5.5 x10^3uL (1.8-7.7) Lymphocytes # (Auto) 3.0 x10^3/uL (1.0-4.8) Monocytes # (Auto) 0.8 x10^3/uL (0.0-1.1) Eosinophils # (Auto) 0.1 x10^3/uL (0.0-0.7) Basophils # (Auto) 0.1 x10^3/uL (0.0-0.2) Prothrombin Time 12.1 SEC (11.7-14.0) Prothromb Time International Ratio 0.9 (0.8-1.1) Activated Partial Thromboplast Time 30 SEC (24-38) Sodium Level 140 mmol/L (136-145) Potassium Level 3.7 mmol/L (3.5-5.1) Chloride Level 106 mmol/L (98-107) Carbon Dioxide Level 27 mmol/L (21-32) Anion Gap 7 (6-14) Blood Urea Nitrogen 5 mg/dL (7-20) Creatinine 1.1 mg/dL (0.6-1.0) Estimated GFR (Cockcroft-Gault) 60.9 BUN/Creatinine Ratio 5 (6-20) Glucose Level 97 mg/dL (70-99) Calcium Level 9.2 mg/dL (8.5-10.1) Magnesium Level 2.2 mg/dL (1.8-2.4) Total Bilirubin 0.2 mg/dL (0.2-1.0) Aspartate Amino Transf (AST/SGOT) 18 U/L (15-37) Alanine Aminotransferase (ALT/SGPT) 19 U/L (14-59) Alkaline Phosphatase 99 U/L (46-116) Troponin I Quantitative < 0.017 ng/mL (0.000-0.055) Total Protein 7.1 g/dL (6.4-8.2) Albumin 3.0 g/dL (3.4-5.0) Albumin/Globulin Ratio 0.7 (1.0-1.7) Lipase 104 U/L (73-393) VTE Prophylaxis Ordered VTE Prophylaxis Devices: Contraindicated VTE Pharmacological Prophylaxi: Contraindicated Assessment/Plan Assessment/Plan Long segment colitis involving descending colon and rectosigmoid colon. FAtigue BLoody BM x 7 days CHronic vertigo/dizziness on meclizine PLAN: Clear, admit, HH tmr, GI consult HOld ASA home meds reconciled IVF Seen at ER [facility] per pharmacy JULIET RIZVI MD Aug 10, 2018 20:30
[2018-08-10] MEDS ORDERED: MECLIZINE HCL 12.5 MG TABLET. PO PRN (20:45)
[2018-08-10] MEDS ORDERED: ALBUTEROL SULFATE 2.5 MG/3 ML NEBU. NEB PRN (21:00)
[2018-08-10 21:05] VITALS: BP 171/99
[2018-08-10] MEDS: CIPROFLOXACIN 0.3% OPHTH SOLUTION 5ML BOTTLE. OD SCH (22:16)
[2018-08-10] MEDS: dilTIAZem HCL 30 MG TABLET PO SCH (22:16)
[2018-08-10] MEDS: oxyCODONE/APAP 10/325 1 TAB TABLET PO SCH (22:17)
[2018-08-10 23:00] VITALS: BP 144/89
[2018-08-11] MEDS: traMADol 50 MG TABLET PO SCH ×2 (00:50→20:53)
[2018-08-11] MEDS: diphenhydrAMINE 50 MG/ML VIAL IVP PRN ×3 (00:50→22:55)
[2018-08-11 03:00] VITALS: BP 144/83
[2018-08-11] MEDS: IV NORMAL SALINE 1000ML BAG 1,000 ML IV SCH ×3 (03:53→13:57)
[2018-08-11 04:53] LABS: BASO % 0 % (0-3); EOS # 0.1 x10^3/uL (0.0-0.7); EOS % 1 % (0-3); HEMOGLOBIN 12.2 g/dL (12.0-15.5); LYMPH # 4.4 x10^3/uL (1.0-4.8); LYMPH % 39 % (24-48); MEAN CORPUSCULAR HEMOGLOBIN 31 pg (25-35); MEAN CORPUSCULAR HGB CONC 34 g/dL (31-37); MEAN CORPUSCULAR VOLUME 91 fL (79-100); MONO % 9 % (0-9); NEUT # 5.8 x10^3uL (1.8-7.7); NEUT % 51 % (31-73); PLATELET COUNT 230 x10^3/uL (140-400); RED BLOOD COUNT 3.95 x10^6/uL (3.50-5.40); WHITE BLOOD COUNT 11.2 x10^3/uL (4.0-11.0)
[2018-08-11 05:14] LABS: ALBUMIN 2.7 g/dL (3.4-5.0); ALBUMIN/GLOBULIN RATIO 0.7 (1.0-1.7); CALCIUM 8.3 mg/dL (8.5-10.1); CREATININE 0.9 mg/dL (0.6-1.0); GFR 76.8; POTASSIUM 3.2 mmol/L (3.5-5.1); TOTAL BILIRUBIN 0.3 mg/dL (0.2-1.0); TOTAL PROTEIN 6.5 g/dL (6.4-8.2)
[2018-08-11 07:00] VITALS: BP 165/100
[2018-08-11] MEDS ORDERED: PANTOPRAZOLE IV PUSH 40 MG VIAL. IVP SCH (07:30)
[2018-08-11] MEDS: ONDANSETRON PF 4 MG/2 ML VIAL. IV PRN ×2 (07:56→17:22)
[2018-08-11] MEDS ORDERED: DICYCLOMINE HCL 10 MG CAPSULE PO SCH (09:00)
[2018-08-11] MEDS ORDERED: CETIRIZINE HCL 10 MG TABLET. PO SCH ×2 (09:00)
[2018-08-11] MEDS ORDERED: GABAPENTIN 300 MG CAPSULE. PO SCH (09:00)
[2018-08-11] MEDS: MAGNESIUM OXIDE 400 MG TABLET PO SCH (09:19)
[2018-08-11] MEDS: DICYCLOMINE HCL 10 MG CAPSULE PO SCH (09:19)
[2018-08-11] MEDS: CETIRIZINE HCL 10 MG TABLET. PO SCH (09:20)
[2018-08-11] MEDS: oxyCODONE/APAP 10/325 1 TAB TABLET PO SCH ×4 (09:20→20:52)
[2018-08-11] MEDS: GABAPENTIN 300 MG CAPSULE. PO SCH (09:20)
[2018-08-11] MEDS: FOLIC ACID 1 MG TABLET. PO SCH (09:20)
[2018-08-11] MEDS: dilTIAZem HCL 30 MG TABLET PO SCH ×2 (09:21→20:53)
--- NOTE | 2018-08-11 09:48 | PDOC2 ---
GI CONSULT Reason For Consult: Colitis HPI: HPI: 63 y/o female admitted through ER. 7 days of worsening bleeding - red blood with normal stool and sometimes without, also with wiping. Feels dizzy. No abdominal pain until yesterday - then had LLQ discomfort. No diarrhea or constipation (though took Linzess x 1 awhile ago for constipation while on Percocet). Some decreased appetite, but no n/v. H/o GERD on omeprazole QD. Takes ASA, also NSAIDs PRN. EGD and colonoscopy with Dr. Mancuso last year - says esophagus was dilated and she had "pockets in her stomach" (?diverticulosis). S /p cholecystectomy (doesn't recall stones). No liver or pancreas history. Normal Hgb, fecal occult positive. CT showed colitis in descending and rectosigmoid colon. On IV Levofloxacin and IV PPI w/ clear liquids. 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) ROS: GEN: Denies fevers, chills, sweats HEENT: Denies blurred vision, sore throat CV: Denies chest pain RESP: Denies shortness of air, cough GI: Per HPI : Denies hematuria, dysuria ENDO: Denies weight changes NEURO: +dizziness +headache MSK: Denies weakness, joint pain/swelling SKIN: Denies jaundice, pruritus Vitals: Vitals: Vital Signs Date Time Temp Pulse Resp B/P (MAP) Pulse Ox O2 Delivery O2 Flow Rate FiO2 08/11/18 09:21 94 165/100 08/11/18 09:20 Room Air 08/11/18 07:00 97.5 18 92 97.5 Labs: Labs: Laboratory Tests Test 08/10/18 17:20 08/10/18 17:45 08/10/18 18:04 08/11/18 03:15 Urine Collection Type Unknown Urine Color Dk yellow Urine Clarity Clear Urine pH 5.5 Urine Specific [place] 1.025 Urine Protein Negative mg/dL (NEG-TRACE) Urine Glucose (UA) Negative mg/dL (NEG) Urine Ketones (Stick) Negative mg/dL (NEG) Urine Blood Negative (NEG) Urine Nitrite Negative (NEG) Urine Bilirubin Small (NEG) Urine Urobilinogen Dipstick 0.2 mg/dL (0.2 mg/dL) Urine Leukocyte Esterase Negative (NEG) Urine RBC 0 /HPF (0-2) Urine WBC Rare /HPF (0-4) Urine Squamous Epithelial Cells Few /LPF Urine Bacteria Few /HPF (0-FEW) Urine Mucus Mod /LPF Stool Occult Blood Positive (NEG) White Blood Count 9.4 x10^3/uL (4.0-11.0) 11.2 x10^3/uL (4.0-11.0) Red Blood Count 4.21 x10^6/uL (3.50-5.40) 3.95 x10^6/uL (3.50-5.40) Hemoglobin 13.0 g/dL (12.0-15.5) 12.2 g/dL (12.0-15.5) Hematocrit 38.4 % (36.0-47.0) 36.0 % (36.0-47.0) Mean Corpuscular Volume 91 fL (79-100) 91 fL (79-100) Mean Corpuscular Hemoglobin 31 pg (25-35) 31 pg (25-35) Mean Corpuscular Hemoglobin Concent 34 g/dL (31-37) 34 g/dL (31-37) Red Cell Distribution Width 15.0 % (11.5-14.5) 15.0 % (11.5-14.5) Platelet Count 234 x10^3/uL (140-400) 230 x10^3/uL (140-400) Neutrophils (%) (Auto) 59 % (31-73) 51 % (31-73) Lymphocytes (%) (Auto) 32 % (24-48) 39 % (24-48) Monocytes (%) (Auto) 9 % (0-9) 9 % (0-9) Eosinophils (%) (Auto) 1 % (0-3) 1 % (0-3) Basophils (%) (Auto) 1 % (0-3) 0 % (0-3) Neutrophils # (Auto) 5.5 x10^3uL (1.8-7.7) 5.8 x10^3uL (1.8-7.7) Lymphocytes # (Auto) 3.0 x10^3/uL (1.0-4.8) 4.4 x10^3/uL (1.0-4.8) Monocytes # (Auto) 0.8 x10^3/uL (0.0-1.1) 1.0 x10^3/uL (0.0-1.1) Eosinophils # (Auto) 0.1 x10^3/uL (0.0-0.7) 0.1 x10^3/uL (0.0-0.7) Basophils # (Auto) 0.1 x10^3/uL (0.0-0.2) 0.0 x10^3/uL (0.0-0.2) Prothrombin Time 12.1 SEC (11.7-14.0) Prothromb Time International Ratio 0.9 (0.8-1.1) Activated Partial Thromboplast Time 30 SEC (24-38) Sodium Level 140 mmol/L (136-145) 140 mmol/L (136-145) Potassium Level 3.7 mmol/L (3.5-5.1) 3.2 mmol/L (3.5-5.1) Chloride Level 106 mmol/L (98-107) 108 mmol/L (98-107) Carbon Dioxide Level 27 mmol/L (21-32) 26 mmol/L (21-32) Anion Gap 7 (6-14) 6 (6-14) Blood Urea Nitrogen 5 mg/dL (7-20) 5 mg/dL (7-20) Creatinine 1.1 mg/dL (0.6-1.0) 0.9 mg/dL (0.6-1.0) Estimated GFR (Cockcroft-Gault) 60.9 76.8 BUN/Creatinine Ratio 5 (6-20) 6 (6-20) Glucose Level 97 mg/dL (70-99) 75 mg/dL (70-99) Calcium Level 9.2 mg/dL (8.5-10.1) 8.3 mg/dL (8.5-10.1) Magnesium Level 2.2 mg/dL (1.8-2.4) Total Bilirubin 0.2 mg/dL (0.2-1.0) 0.3 mg/dL (0.2-1.0) Aspartate Amino Transf (AST/SGOT) 18 U/L (15-37) 20 U/L (15-37) Alanine Aminotransferase (ALT/SGPT) 19 U/L (14-59) 18 U/L (14-59) Alkaline Phosphatase 99 U/L (46-116) 86 U/L (46-116) Troponin I Quantitative < 0.017 ng/mL (0.000-0.055) Total Protein 7.1 g/dL (6.4-8.2) 6.5 g/dL (6.4-8.2) Albumin 3.0 g/dL (3.4-5.0) 2.7 g/dL (3.4-5.0) Albumin/Globulin Ratio 0.7 (1.0-1.7) 0.7 (1.0-1.7) Lipase 104 U/L (73-393) Allergies: Coded Allergies: aspirin (Verified Adverse Reaction, Intermediate, gi upset, 06/16/16) Medications: Current Medications Medications (Trade) Dose Ordered Sig/Steven Route PRN Reason Start Time Stop Time Status Last Admin Dose Admin Fentanyl Citrate (Fentanyl 2ml Vial) 25 mcg 1X ONCE IV 08/10/18 18:15 08/10/18 18:22 DC 08/10/18 18:27 Iohexol (Omnipaque 300 Mg/ml) 75 ml 1X ONCE IV 08/10/18 18:30 08/10/18 18:32 DC 08/10/18 18:44 Metronidazole 100 ml @ 100 mls/hr 1X ONCE IV 08/10/18 19:45 08/10/18 20:44 DC 08/10/18 20:24 Levofloxacin/ Dextrose 150 ml @ 100 mls/hr 1X ONCE IV 08/10/18 19:45 08/10/18 21:14 DC 08/11/18 01:04 Fentanyl Citrate (Fentanyl 2ml Vial) 50 mcg 1X ONCE IV 08/10/18 19:45 08/10/18 19:46 DC 08/10/18 20:24 Sodium Chloride 1,000 ml @ 1,000 mls/hr 1X ONCE IV 08/10/18 19:45 08/10/18 20:44 DC 08/10/18 20:26 Sodium Chloride 1,000 ml @ 100 mls/hr Q10H IV 08/10/18 20:30 08/11/18 06:30 Pantoprazole Sodium (PROTONIX VIAL for IV PUSH) 40 mg DAILYAC IVP 08/11/18 07:30 08/11/18 09:21 Pantoprazole Sodium (PROTONIX VIAL for IV PUSH) 40 mg 1X ONCE IVP 08/10/18 20:30 08/10/18 20:31 DC 08/10/18 22:17 Ondansetron HCl (Zofran) 4 mg PRN Q6HRS PRN IV NAUSEA/VOMITING 08/10/18 20:30 08/11/18 07:56 Folic Acid (Folic Acid) 1 mg DAILY PO 08/11/18 09:00 08/11/18 09:20 Oxycodone/ Acetaminophen (Percocet 10/325) 1 tab QID PO 08/10/18 21:00 08/11/18 09:20 Diltiazem HCl (Cardizem) 60 mg BID PO 08/10/18 21:00 08/11/18 09:21 Magnesium Oxide (Magnesium Oxide) 400 mg DAILY PO 08/11/18 09:00 08/11/18 09:19 Albuterol Sulfate (Ventolin Neb Soln) 2.5 mg PRN Q6HRS PRN NEB SHORTNESS OF BREATH 08/10/18 21:00 08/11/18 02:01 Ciprofloxacin (Ciloxan Ophth) 1 drop HS OD 08/10/18 22:00 08/10/18 22:16 Tramadol HCl (Ultram) 50 mg HS PO 08/10/18 22:00 08/11/18 00:50 Gabapentin (Neurontin) 300 mg DAILY PO 08/11/18 09:00 08/11/18 09:20 Dicyclomine HCl (Bentyl) 10 mg DAILY PO 08/11/18 09:00 08/11/18 09:19 Cetirizine HCl (ZyrTEC) 10 mg DAILY PO 08/11/18 09:00 08/11/18 09:20 Diphenhydramine HCl (Benadryl) 25 mg PRN Q8HRS PRN IVP ITCHING 08/11/18 00:45 08/11/18 07:56 Imaging: Imaging: CT A/P IMPRESSION: Long segment colitis involving descending colon and rectosigmoid colon. PE: GEN: NAD HEENT: Atraumatic, PERRL LUNGS: CTAB HEART: RRR ABD: NABS, S/ND, LLQ discomfort EXTREMITY: No edema SKIN: No rashes, no jaundice NEURO/PSYCH: A & O 3 A/P: A/P: Hematochezia, LLQ pain Left-sided colitis on CT GERD - on PPI, last EGD w/ Dr. Mancuso in 2016 CRC screen - also in 2017 S/p cholecystectomy -- Describes normal stools - no diarrhea w/ bleeding... ?ischemia Supportive care, check stool studies, monitor labs. Since taking some clears, PO PPI. RIKKI HERNANDEZ Aug 11, 2018 09:48
[2018-08-11] MEDS ORDERED: DIPHENHYDRAMINE/ZINC ACETATE 2%/0.1% TOPICAL CREAM 28GM TUBE. TP PRN (10:00)
[2018-08-11 11:00] VITALS: BP 148/90
--- NOTE | 2018-08-11 11:50 | PDOC ---
PROGRESS NOTES History of Present Illness History of Present Illness impression Hematochezia, LLQ pain Left-sided colitis GERD - Fatigue rectal bleeding CHronic vertigo hypokalemia PLAN: replace k HH tmr, GI consult HOld ASA home meds IVF support iv levaquin Vitals Vitals Vital Signs Date Time Temp Pulse Resp B/P (MAP) Pulse Ox O2 Delivery O2 Flow Rate FiO2 08/11/18 10:26 Room Air 08/11/18 09:21 94 165/100 08/11/18 07:00 97.5 18 92 97.5 Physical Exam General: Oriented X3, Cooperative, No acute distress, Other (looks tired/ fatigued) Heart: Regular rate, Normal S1, Normal S2 Lungs: Clear Abdomen: Normal bowel sounds, Soft, No tenderness, No hepatosplenomegaly, No masses Extremities: No clubbing, No cyanosis, No edema, Normal pulses, No tenderness/ swelling Skin: No rashes, No breakdown, No significant lesion Labs LABS Laboratory Tests Test 08/10/18 17:20 08/10/18 17:45 08/10/18 18:04 08/11/18 03:15 Urine Collection Type Unknown Urine Color Dk yellow Urine Clarity Clear Urine pH 5.5 Urine Specific [place] 1.025 Urine Protein Negative mg/dL (NEG-TRACE) Urine Glucose (UA) Negative mg/dL (NEG) Urine Ketones (Stick) Negative mg/dL (NEG) Urine Blood Negative (NEG) Urine Nitrite Negative (NEG) Urine Bilirubin Small (NEG) Urine Urobilinogen Dipstick 0.2 mg/dL (0.2 mg/dL) Urine Leukocyte Esterase Negative (NEG) Urine RBC 0 /HPF (0-2) Urine WBC Rare /HPF (0-4) Urine Squamous Epithelial Cells Few /LPF Urine Bacteria Few /HPF (0-FEW) Urine Mucus Mod /LPF Stool Occult Blood Positive (NEG) White Blood Count 9.4 x10^3/uL (4.0-11.0) 11.2 x10^3/uL (4.0-11.0) Red Blood Count 4.21 x10^6/uL (3.50-5.40) 3.95 x10^6/uL (3.50-5.40) Hemoglobin 13.0 g/dL (12.0-15.5) 12.2 g/dL (12.0-15.5) Hematocrit 38.4 % (36.0-47.0) 36.0 % (36.0-47.0) Mean Corpuscular Volume 91 fL (79-100) 91 fL (79-100) Mean Corpuscular Hemoglobin 31 pg (25-35) 31 pg (25-35) Mean Corpuscular Hemoglobin Concent 34 g/dL (31-37) 34 g/dL (31-37) Red Cell Distribution Width 15.0 % (11.5-14.5) 15.0 % (11.5-14.5) Platelet Count 234 x10^3/uL (140-400) 230 x10^3/uL (140-400) Neutrophils (%) (Auto) 59 % (31-73) 51 % (31-73) Lymphocytes (%) (Auto) 32 % (24-48) 39 % (24-48) Monocytes (%) (Auto) 9 % (0-9) 9 % (0-9) Eosinophils (%) (Auto) 1 % (0-3) 1 % (0-3) Basophils (%) (Auto) 1 % (0-3) 0 % (0-3) Neutrophils # (Auto) 5.5 x10^3uL (1.8-7.7) 5.8 x10^3uL (1.8-7.7) Lymphocytes # (Auto) 3.0 x10^3/uL (1.0-4.8) 4.4 x10^3/uL (1.0-4.8) Monocytes # (Auto) 0.8 x10^3/uL (0.0-1.1) 1.0 x10^3/uL (0.0-1.1) Eosinophils # (Auto) 0.1 x10^3/uL (0.0-0.7) 0.1 x10^3/uL (0.0-0.7) Basophils # (Auto) 0.1 x10^3/uL (0.0-0.2) 0.0 x10^3/uL (0.0-0.2) Prothrombin Time 12.1 SEC (11.7-14.0) Prothromb Time International Ratio 0.9 (0.8-1.1) Activated Partial Thromboplast Time 30 SEC (24-38) Sodium Level 140 mmol/L (136-145) 140 mmol/L (136-145) Potassium Level 3.7 mmol/L (3.5-5.1) 3.2 mmol/L (3.5-5.1) Chloride Level 106 mmol/L (98-107) 108 mmol/L (98-107) Carbon Dioxide Level 27 mmol/L (21-32) 26 mmol/L (21-32) Anion Gap 7 (6-14) 6 (6-14) Blood Urea Nitrogen 5 mg/dL (7-20) 5 mg/dL (7-20) Creatinine 1.1 mg/dL (0.6-1.0) 0.9 mg/dL (0.6-1.0) Estimated GFR (Cockcroft-Gault) 60.9 76.8 BUN/Creatinine Ratio 5 (6-20) 6 (6-20) Glucose Level 97 mg/dL (70-99) 75 mg/dL (70-99) Calcium Level 9.2 mg/dL (8.5-10.1) 8.3 mg/dL (8.5-10.1) Magnesium Level 2.2 mg/dL (1.8-2.4) Total Bilirubin 0.2 mg/dL (0.2-1.0) 0.3 mg/dL (0.2-1.0) Aspartate Amino Transf (AST/SGOT) 18 U/L (15-37) 20 U/L (15-37) Alanine Aminotransferase (ALT/SGPT) 19 U/L (14-59) 18 U/L (14-59) Alkaline Phosphatase 99 U/L (46-116) 86 U/L (46-116) Troponin I Quantitative < 0.017 ng/mL (0.000-0.055) Total Protein 7.1 g/dL (6.4-8.2) 6.5 g/dL (6.4-8.2) Albumin 3.0 g/dL (3.4-5.0) 2.7 g/dL (3.4-5.0) Albumin/Globulin Ratio 0.7 (1.0-1.7) 0.7 (1.0-1.7) Lipase 104 U/L (73-393) Comment Review of Relevant I have reviewed the following items nicole (where applicable) has been applied. Labs Laboratory Tests Test 08/10/18 17:20 08/10/18 17:45 08/10/18 18:04 08/11/18 03:15 Urine Collection Type Unknown Urine Color Dk yellow Urine Clarity Clear Urine pH 5.5 Urine Specific [place] 1.025 Urine Protein Negative mg/dL (NEG-TRACE) Urine Glucose (UA) Negative mg/dL (NEG) Urine Ketones (Stick) Negative mg/dL (NEG) Urine Blood Negative (NEG) Urine Nitrite Negative (NEG) Urine Bilirubin Small (NEG) Urine Urobilinogen Dipstick 0.2 mg/dL (0.2 mg/dL) Urine Leukocyte Esterase Negative (NEG) Urine RBC 0 /HPF (0-2) Urine WBC Rare /HPF (0-4) Urine Squamous Epithelial Cells Few /LPF Urine Bacteria Few /HPF (0-FEW) Urine Mucus Mod /LPF Stool Occult Blood Positive (NEG) White Blood Count 9.4 x10^3/uL (4.0-11.0) 11.2 x10^3/uL (4.0-11.0) Red Blood Count 4.21 x10^6/uL (3.50-5.40) 3.95 x10^6/uL (3.50-5.40) Hemoglobin 13.0 g/dL (12.0-15.5) 12.2 g/dL (12.0-15.5) Hematocrit 38.4 % (36.0-47.0) 36.0 % (36.0-47.0) Mean Corpuscular Volume 91 fL (79-100) 91 fL (79-100) Mean Corpuscular Hemoglobin 31 pg (25-35) 31 pg (25-35) Mean Corpuscular Hemoglobin Concent 34 g/dL (31-37) 34 g/dL (31-37) Red Cell Distribution Width 15.0 % (11.5-14.5) 15.0 % (11.5-14.5) Platelet Count 234 x10^3/uL (140-400) 230 x10^3/uL (140-400) Neutrophils (%) (Auto) 59 % (31-73) 51 % (31-73) Lymphocytes (%) (Auto) 32 % (24-48) 39 % (24-48) Monocytes (%) (Auto) 9 % (0-9) 9 % (0-9) Eosinophils (%) (Auto) 1 % (0-3) 1 % (0-3) Basophils (%) (Auto) 1 % (0-3) 0 % (0-3) Neutrophils # (Auto) 5.5 x10^3uL (1.8-7.7) 5.8 x10^3uL (1.8-7.7) Lymphocytes # (Auto) 3.0 x10^3/uL (1.0-4.8) 4.4 x10^3/uL (1.0-4.8) Monocytes # (Auto) 0.8 x10^3/uL (0.0-1.1) 1.0 x10^3/uL (0.0-1.1) Eosinophils # (Auto) 0.1 x10^3/uL (0.0-0.7) 0.1 x10^3/uL (0.0-0.7) Basophils # (Auto) 0.1 x10^3/uL (0.0-0.2) 0.0 x10^3/uL (0.0-0.2) Prothrombin Time 12.1 SEC (11.7-14.0) Prothromb Time International Ratio 0.9 (0.8-1.1) Activated Partial Thromboplast Time 30 SEC (24-38) Sodium Level 140 mmol/L (136-145) 140 mmol/L (136-145) Potassium Level 3.7 mmol/L (3.5-5.1) 3.2 mmol/L (3.5-5.1) Chloride Level 106 mmol/L (98-107) 108 mmol/L (98-107) Carbon Dioxide Level 27 mmol/L (21-32) 26 mmol/L (21-32) Anion Gap 7 (6-14) 6 (6-14) Blood Urea Nitrogen 5 mg/dL (7-20) 5 mg/dL (7-20) Creatinine 1.1 mg/dL (0.6-1.0) 0.9 mg/dL (0.6-1.0) Estimated GFR (Cockcroft-Gault) 60.9 76.8 BUN/Creatinine Ratio 5 (6-20) 6 (6-20) Glucose Level 97 mg/dL (70-99) 75 mg/dL (70-99) Calcium Level 9.2 mg/dL (8.5-10.1) 8.3 mg/dL (8.5-10.1) Magnesium Level 2.2 mg/dL (1.8-2.4) Total Bilirubin 0.2 mg/dL (0.2-1.0) 0.3 mg/dL (0.2-1.0) Aspartate Amino Transf (AST/SGOT) 18 U/L (15-37) 20 U/L (15-37) Alanine Aminotransferase (ALT/SGPT) 19 U/L (14-59) 18 U/L (14-59) Alkaline Phosphatase 99 U/L (46-116) 86 U/L (46-116) Troponin I Quantitative < 0.017 ng/mL (0.000-0.055) Total Protein 7.1 g/dL (6.4-8.2) 6.5 g/dL (6.4-8.2) Albumin 3.0 g/dL (3.4-5.0) 2.7 g/dL (3.4-5.0) Albumin/Globulin Ratio 0.7 (1.0-1.7) 0.7 (1.0-1.7) Lipase 104 U/L (73-393) Laboratory Tests Test 08/10/18 17:20 08/10/18 17:45 08/10/18 18:04 08/11/18 03:15 Urine Collection Type Unknown Urine Color Dk yellow Urine Clarity Clear Urine pH 5.5 Urine Specific [place] 1.025 Urine Protein Negative mg/dL (NEG-TRACE) Urine Glucose (UA) Negative mg/dL (NEG) Urine Ketones (Stick) Negative mg/dL (NEG) Urine Blood Negative (NEG) Urine Nitrite Negative (NEG) Urine Bilirubin Small (NEG) Urine Urobilinogen Dipstick 0.2 mg/dL (0.2 mg/dL) Urine Leukocyte Esterase Negative (NEG) Urine RBC 0 /HPF (0-2) Urine WBC Rare /HPF (0-4) Urine Squamous Epithelial Cells Few /LPF Urine Bacteria Few /HPF (0-FEW) Urine Mucus Mod /LPF Stool Occult Blood Positive (NEG) White Blood Count 9.4 x10^3/uL (4.0-11.0) 11.2 x10^3/uL (4.0-11.0) Red Blood Count 4.21 x10^6/uL (3.50-5.40) 3.95 x10^6/uL (3.50-5.40) Hemoglobin 13.0 g/dL (12.0-15.5) 12.2 g/dL (12.0-15.5) Hematocrit 38.4 % (36.0-47.0) 36.0 % (36.0-47.0) Mean Corpuscular Volume 91 fL (79-100) 91 fL (79-100) Mean Corpuscular Hemoglobin 31 pg (25-35) 31 pg (25-35) Mean Corpuscular Hemoglobin Concent 34 g/dL (31-37) 34 g/dL (31-37) Red Cell Distribution Width 15.0 % (11.5-14.5) 15.0 % (11.5-14.5) Platelet Count 234 x10^3/uL (140-400) 230 x10^3/uL (140-400) Neutrophils (%) (Auto) 59 % (31-73) 51 % (31-73) Lymphocytes (%) (Auto) 32 % (24-48) 39 % (24-48) Monocytes (%) (Auto) 9 % (0-9) 9 % (0-9) Eosinophils (%) (Auto) 1 % (0-3) 1 % (0-3) Basophils (%) (Auto) 1 % (0-3) 0 % (0-3) Neutrophils # (Auto) 5.5 x10^3uL (1.8-7.7) 5.8 x10^3uL (1.8-7.7) Lymphocytes # (Auto) 3.0 x10^3/uL (1.0-4.8) 4.4 x10^3/uL (1.0-4.8) Monocytes # (Auto) 0.8 x10^3/uL (0.0-1.1) 1.0 x10^3/uL (0.0-1.1) Eosinophils # (Auto) 0.1 x10^3/uL (0.0-0.7) 0.1 x10^3/uL (0.0-0.7) Basophils # (Auto) 0.1 x10^3/uL (0.0-0.2) 0.0 x10^3/uL (0.0-0.2) Prothrombin Time 12.1 SEC (11.7-14.0) Prothromb Time International Ratio 0.9 (0.8-1.1) Activated Partial Thromboplast Time 30 SEC (24-38) Sodium Level 140 mmol/L (136-145) 140 mmol/L (136-145) Potassium Level 3.7 mmol/L (3.5-5.1) 3.2 mmol/L (3.5-5.1) Chloride Level 106 mmol/L (98-107) 108 mmol/L (98-107) Carbon Dioxide Level 27 mmol/L (21-32) 26 mmol/L (21-32) Anion Gap 7 (6-14) 6 (6-14) Blood Urea Nitrogen 5 mg/dL (7-20) 5 mg/dL (7-20) Creatinine 1.1 mg/dL (0.6-1.0) 0.9 mg/dL (0.6-1.0) Estimated GFR (Cockcroft-Gault) 60.9 76.8 BUN/Creatinine Ratio 5 (6-20) 6 (6-20) Glucose Level 97 mg/dL (70-99) 75 mg/dL (70-99) Calcium Level 9.2 mg/dL (8.5-10.1) 8.3 mg/dL (8.5-10.1) Magnesium Level 2.2 mg/dL (1.8-2.4) Total Bilirubin 0.2 mg/dL (0.2-1.0) 0.3 mg/dL (0.2-1.0) Aspartate Amino Transf (AST/SGOT) 18 U/L (15-37) 20 U/L (15-37) Alanine Aminotransferase (ALT/SGPT) 19 U/L (14-59) 18 U/L (14-59) Alkaline Phosphatase 99 U/L (46-116) 86 U/L (46-116) Troponin I Quantitative < 0.017 ng/mL (0.000-0.055) Total Protein 7.1 g/dL (6.4-8.2) 6.5 g/dL (6.4-8.2) Albumin 3.0 g/dL (3.4-5.0) 2.7 g/dL (3.4-5.0) Albumin/Globulin Ratio 0.7 (1.0-1.7) 0.7 (1.0-1.7) Lipase 104 U/L (73-393) Medications Current Medications Fentanyl Citrate (Fentanyl 2ml Vial) 25 mcg 1X ONCE IV Last administered on 10/17at 18:27; Start 08/10/18 at 18:15; Stop 08/10/18 at 18:22; Status DC Iohexol (Omnipaque 300 Mg/ml) 75 ml 1X ONCE IV Last administered on 08/10/18at 18:44; Start 08/10/18 at 18:30; Stop 08/10/18 at 18:32; Status DC Metronidazole 100 ml @ 100 mls/hr 1X ONCE IV Last administered on 08/10/18at 20:24; Start 08/10/18 at 19:45; Stop 08/10/18 at 20:44; Status DC Levofloxacin/ Dextrose 150 ml @ 100 mls/hr 1X ONCE IV Last administered on 11/16at 01:04; Start 08/10/18 at 19:45; Stop 08/10/18 at 21:14; Status DC Fentanyl Citrate (Fentanyl 2ml Vial) 50 mcg 1X ONCE IV Last administered on 10/17at 20:24; Start 08/10/18 at 19:45; Stop 08/10/18 at 19:46; Status DC Sodium Chloride 1,000 ml @ 1,000 mls/hr 1X ONCE IV Last administered on at 20:26; Start 08/10/18 at 19:45; Stop 08/10/18 at 20:44; Status DC Fentanyl Citrate (Fentanyl 2ml Vial) 50 mcg PRN Q3HRS PRN IV PAIN; Start at 20:00; Stop 08/11/18 at 19:59 Sodium Chloride 1,000 ml @ 100 drops/ hr Q24H IV ; Start 08/10/18 at 19:46; Stop 08/10/18 at 20:15; Status DC Sodium Chloride 1,000 ml @ 100 mls/hr Q10H IV Last administered on 08/11/18at 06:30; Start 08/10/18 at 20:30 Levofloxacin/ Dextrose (Levaquin Per Pharmacy) 1 each PRN DAILY PRN MC SEE COMMENTS; Start 08/10/18 at 20:30 Pantoprazole Sodium (PROTONIX VIAL for IV PUSH) 40 mg DAILYAC IVP Last administered on 08/11/18at 09:21; Start 08/11/18 at 07:30; Stop 08/11/18 at 09:48 ; Status DC Pantoprazole Sodium (PROTONIX VIAL for IV PUSH) 40 mg 1X ONCE IVP Last administered on 08/10/18at 22:17; Start 08/10/18 at 20:30; Stop 08/10/18 at 20:31 ; Status DC Acetaminophen/ Codeine Phosphate (Tylenol #3) 1 tab PRN Q6HRS PRN PO PAIN; Start 08/10/18 at 20:30 Acetaminophen (Tylenol) 500 mg PRN Q6HRS PRN PO MILD PAIN / TEMP; Start at 20:30 Ondansetron HCl (Zofran) 4 mg PRN Q6HRS PRN IV NAUSEA/VOMITING Last administered on 08/11/18at 07:56; Start 08/10/18 at 20:30 Ondansetron HCl (Zofran Odt) 4 mg PRN Q6HRS PRN PO NAUSEA/VOMITING; Start 08/10 at 20:30 Ergocalciferol (Vitamin D2) 50,000 unit WEEKLY PO ; Start 08/17/18 at 09:00 Folic Acid (Folic Acid) 1 mg DAILY PO Last administered on 08/11/18at 09:20; Start 08/11/18 at 09:00 Ondansetron HCl (Zofran Odt) 4 mg PRN BID PRN PO NAUSEA/VOMITING; Start at 20:30; Status Cancel Oxycodone/ Acetaminophen (Percocet 10/325) 1 tab QID PO Last administered on 11/16at 09:20; Start 08/10/18 at 21:00 Non-Formulary Medication (Albuterol Sulfate (Proair Hfa Inhaler)) 1 puff PRN Q6HRS PRN INH SHORTNESS OF BREATH; Start 08/10/18 at 20:30; Status UNV Non-Formulary Medication (Albuterol Sulfate (Proair Hfa Inhaler)) 1 puff PRN Q6HRS PRN INH SHORTNESS OF BREATH; Start 08/10/18 at 20:30; Status UNV Diltiazem HCl (Cardizem) 60 mg BID PO Last administered on 08/11/18at 09:21; Start 08/10/18 at 21:00 Cetirizine HCl (ZyrTEC) 10 mg DAILY PO ; Start 08/11/18 at 09:00; Stop 08/11/18 at 09:00; Status DC Magnesium Oxide (Magnesium Oxide) 400 mg DAILY PO Last administered on at 09:19; Start 08/11/18 at 09:00 Meclizine HCl (Antivert) 25 mg PRN Q6HRS PRN PO DIZZINESS; Start 08/10/18 at 20 :45 Levofloxacin/ Dextrose 100 ml @ 100 mls/hr Q24H IV ; Start 08/11/18 at 21:00 Albuterol Sulfate (Ventolin Neb Soln) 2.5 mg PRN Q6HRS PRN NEB SHORTNESS OF BREATH Last administered on 08/11/18at 02:01; Start 08/10/18 at 21:00 Gabapentin (Neurontin) 300 mg TID PO ; Start 08/11/18 at 09:00; Status Cancel Dicyclomine HCl (Bentyl) 10 mg DAILY PO ; Start 08/11/18 at 09:00; Status Cancel Ciprofloxacin (Ciloxan Ophth) 1 drop HS OD Last administered on 08/10/18at 22:16 ; Start 08/10/18 at 22:00 Cetirizine HCl (ZyrTEC) 10 mg DAILY PO ; Start 08/11/18 at 09:00; Status Cancel Tramadol HCl (Ultram) 50 mg HS PO Last administered on 08/11/18at 00:50; Start 08/10/18 at 22:00 Gabapentin (Neurontin) 300 mg DAILY PO Last administered on 08/11/18at 09:20; Start 08/11/18 at 09:00 Dicyclomine HCl (Bentyl) 10 mg DAILY PO Last administered on 08/11/18at 09:19; Start 08/11/18 at 09:00 Cetirizine HCl (ZyrTEC) 10 mg DAILY PO Last administered on 08/11/18at 09:20; Start 08/11/18 at 09:00 Diphenhydramine HCl (Benadryl) 25 mg PRN Q8HRS PRN IVP ITCHING Last administered on 08/11/18at 07:56; Start 08/11/18 at 00:45 Pantoprazole Sodium (Protonix) 40 mg DAILYAC PO ; Start 08/12/18 at 07:30 Zinc Acetate/ Diphenhydramine (Benadryl Topical) 1 jamshid PRN Q3HRS PRN TP ITCHING Last administered on 08/11/18at 10:19; Start 08/11/18 at 10:00 Active Scripts Active Meclizine Hcl 25 Mg Tablet 25 Mg PO Q6-8HRS PRN Macrobid 100 Mg Capsule (Nitrofurantoin Monohyd/M-Cryst) 100 Mg Capsule 1 Cap PO BID Proair Hfa Inhaler (Albuterol Sulfate) 8.5 Gm Hfa.aer.ad 1 Puff INH PRN Q6HRS PRN 5 Days Reported Cardizem Tablet (Diltiazem Hcl) 60 Mg Tablet 60 Mg PO BID Percocet 10-325 Mg Tablet (Oxycodone/Acetaminophen) 1 Each Tablet 1 Tab PO Q4- 6HRS Linzess (Linaclotide) 145 Mcg Capsule 145 Mcg PO Proair Hfa Inhaler (Albuterol Sulfate) 8.5 Gm Hfa.aer.ad 1 Puff INH PRN Q6HRS PRN Zofran Odt (Ondansetron) 4 Mg Tab.rapdis 4 Mg PO BID PRN Loratadine 10 Mg Tablet 10 Mg PO DAILY Folic Acid 1 Mg Tablet 1 Tab PO DAILY Magnesium Oxide 400 Mg Tablet 400 Mg PO DAILY Vitamin D2 (Ergocalciferol (Vitamin D2)) 50,000 Unit Capsule 1 Cap PO WEEKLY Vitals/I & O Vital Sign - Last 24 Hours 08/10/18 08/10/18 08/10/18 08/10/18 16:40 17:53 18:23 18:27 Temp 98.1 98.1 Pulse 99 94 98 Resp 20 16 16 16 B/P (MAP) 144/94 (111) 147/83 (104) 139/99 (112) Pulse Ox 95 99 95 95 O2 Delivery Room Air Room Air Room Air 08/10/18 08/10/18 08/10/18 08/10/18 20:18 20:24 21:05 22:16 Temp 97.5 97.5 Pulse 98 95 95 Resp 18 16 18 B/P (MAP) 138/89 (105) 171/99 (123) 171/99 Pulse Ox 96 96 91 O2 Delivery Room Air Room Air Room Air 08/10/18 08/10/18 08/10/18 08/11/18 22:17 23:00 23:20 00:50 Temp 98.2 98.2 Pulse 95 Resp 18 B/P (MAP) 144/89 (107) Pulse Ox 91 92 92 92 O2 Delivery Room Air 08/11/18 08/11/18 08/11/18 08/11/18 01:50 02:00 03:00 07:00 Temp 97.9 97.5 97.9 97.5 Pulse 99 94 Resp 18 18 B/P (MAP) 144/83 (103) 165/100 (121) Pulse Ox 92 92 90 92 O2 Delivery Room Air Room Air Room Air Room Air 08/11/18 08/11/18 08/11/18 09:20 09:21 10:26 Pulse 94 B/P (MAP) 165/100 O2 Delivery Room Air Room Air Intake and Output 08/10/18 08/10/18 08/11/18 15:00 23:00 07:00 Intake Total 1000 ml Balance 1000 ml LYNNETTE COBURN MD Aug 11, 2018 11:49
[2018-08-11] MEDS ORDERED: CYPROHEPTADINE 4 MG TABLET. PO PRN (13:45)
[2018-08-11] MEDS: ONDANSETRON ODT 4 MG TAB.RAPDIS. PO PRN (13:57)
[2018-08-11 15:00] VITALS: BP 163/93
[2018-08-11] MEDS: POTASSIUM CHLORIDE 10MEQ 100 ML IV SCH ×4 (17:00→22:55)
[2018-08-11 19:00] VITALS: BP 154/99
[2018-08-11] MEDS: CIPROFLOXACIN 0.3% OPHTH SOLUTION 5ML BOTTLE. OD SCH (20:51)
[2018-08-11] MEDS: LACTOBACILLUS RHAMNOSUS GG 1 CAPSULE. PO SCH (20:52)
[2018-08-11 23:00] VITALS: BP 136/82
[2018-08-12 03:00] VITALS: BP 122/84
[2018-08-12] MEDS: ONDANSETRON ODT 4 MG TAB.RAPDIS. PO PRN ×2 (05:02→05:07)
[2018-08-12] MEDS: IV NORMAL SALINE 1000ML BAG 1,000 ML IV SCH ×2 (05:02→12:30)
[2018-08-12 07:00] VITALS: BP 163/95
[2018-08-12] MEDS ORDERED: PANTOPRAZOLE 40 MG TABLET.DR. PO SCH (07:30)
[2018-08-12] MEDS: LACTOBACILLUS RHAMNOSUS GG 1 CAPSULE. PO SCH (08:25)
[2018-08-12] MEDS: MAGNESIUM OXIDE 400 MG TABLET PO SCH (08:25)
[2018-08-12] MEDS: FOLIC ACID 1 MG TABLET. PO SCH (08:25)
[2018-08-12] MEDS: DICYCLOMINE HCL 10 MG CAPSULE PO SCH (08:25)
[2018-08-12] MEDS: CETIRIZINE HCL 10 MG TABLET. PO SCH (08:25)
[2018-08-12] MEDS: dilTIAZem HCL 30 MG TABLET PO SCH (08:26)
[2018-08-12] MEDS: oxyCODONE/APAP 10/325 1 TAB TABLET PO SCH ×3 (08:27→11:25)
[2018-08-12] MEDS: GABAPENTIN 300 MG CAPSULE. PO SCH (08:30)
[2018-08-12] MEDS ORDERED: POTASSIUM CHLORIDE 20 MEQ TABLET.ER. PO SCH (09:00)
[2018-08-12 09:17] LABS: CALCIUM 8.6 mg/dL (8.5-10.1); CREATININE 0.8 mg/dL (0.6-1.0); GFR 87.9; POTASSIUM 3.8 mmol/L (3.5-5.1)
[2018-08-12 09:46] LABS: BASO % 0 % (0-3); EOS % 0 % (0-3); HEMATOCRIT 36.9 % (36.0-47.0); HEMOGLOBIN 12.6 g/dL (12.0-15.5); LYMPH # 2.7 x10^3/uL (1.0-4.8); LYMPH % 25 % (24-48); MEAN CORPUSCULAR HEMOGLOBIN 31 pg (25-35); MEAN CORPUSCULAR HGB CONC 34 g/dL (31-37); MEAN CORPUSCULAR VOLUME 91 fL (79-100); MONO % 9 % (0-9); NEUT # 7.2 x10^3uL (1.8-7.7); NEUT % 66 % (31-73); PLATELET COUNT 228 x10^3/uL (140-400); RED BLOOD COUNT 4.05 x10^6/uL (3.50-5.40); WHITE BLOOD COUNT 10.9 x10^3/uL (4.0-11.0)
--- NOTE | 2018-08-12 10:28 | PDOC3 ---
Discharge Summary Visit Information Date of Admission: Aug 10, 2018 Date of Discharge: Aug 12, 2018 Admitting Diagnosis Comment: Long segment colitis involving descending colon and rectosigmoid colon. FAtigue BLoody BM x 7 days CHronic vertigo/dizziness on meclizine Brief Hospital Course Allergies Allergies Coded Allergies Type Severity Reaction Last Updated Verified aspirin Adverse Reaction Intermediate gi upset 06/16/16 Yes Vital Signs Vital Signs Date Time Temp Pulse Resp B/P (MAP) Pulse Ox O2 Delivery O2 Flow Rate FiO2 08/12/18 08:31 0 Room Air 08/12/18 08:26 98 163/95 08/12/18 07:00 96.4 85 2.0 96.4 Lab Results Laboratory Tests Test 08/10/18 17:20 08/10/18 17:45 08/10/18 18:04 08/11/18 03:15 Urine Collection Type Unknown Urine Color Dk yellow Urine Clarity Clear Urine pH 5.5 Urine Specific [place] 1.025 Urine Protein Negative mg/dL (NEG-TRACE) Urine Glucose (UA) Negative mg/dL (NEG) Urine Ketones (Stick) Negative mg/dL (NEG) Urine Blood Negative (NEG) Urine Nitrite Negative (NEG) Urine Bilirubin Small (NEG) Urine Urobilinogen Dipstick 0.2 mg/dL (0.2 mg/dL) Urine Leukocyte Esterase Negative (NEG) Urine RBC 0 /HPF (0-2) Urine WBC Rare /HPF (0-4) Urine Squamous Epithelial Cells Few /LPF Urine Bacteria Few /HPF (0-FEW) Urine Mucus Mod /LPF Stool Occult Blood Positive (NEG) White Blood Count 9.4 x10^3/uL (4.0-11.0) 11.2 x10^3/uL (4.0-11.0) Red Blood Count 4.21 x10^6/uL (3.50-5.40) 3.95 x10^6/uL (3.50-5.40) Hemoglobin 13.0 g/dL (12.0-15.5) 12.2 g/dL (12.0-15.5) Hematocrit 38.4 % (36.0-47.0) 36.0 % (36.0-47.0) Mean Corpuscular Volume 91 fL (79-100) 91 fL (79-100) Mean Corpuscular Hemoglobin 31 pg (25-35) 31 pg (25-35) Mean Corpuscular Hemoglobin Concent 34 g/dL (31-37) 34 g/dL (31-37) Red Cell Distribution Width 15.0 % (11.5-14.5) 15.0 % (11.5-14.5) Platelet Count 234 x10^3/uL (140-400) 230 x10^3/uL (140-400) Neutrophils (%) (Auto) 59 % (31-73) 51 % (31-73) Lymphocytes (%) (Auto) 32 % (24-48) 39 % (24-48) Monocytes (%) (Auto) 9 % (0-9) 9 % (0-9) Eosinophils (%) (Auto) 1 % (0-3) 1 % (0-3) Basophils (%) (Auto) 1 % (0-3) 0 % (0-3) Neutrophils # (Auto) 5.5 x10^3uL (1.8-7.7) 5.8 x10^3uL (1.8-7.7) Lymphocytes # (Auto) 3.0 x10^3/uL (1.0-4.8) 4.4 x10^3/uL (1.0-4.8) Monocytes # (Auto) 0.8 x10^3/uL (0.0-1.1) 1.0 x10^3/uL (0.0-1.1) Eosinophils # (Auto) 0.1 x10^3/uL (0.0-0.7) 0.1 x10^3/uL (0.0-0.7) Basophils # (Auto) 0.1 x10^3/uL (0.0-0.2) 0.0 x10^3/uL (0.0-0.2) Prothrombin Time 12.1 SEC (11.7-14.0) Prothromb Time International Ratio 0.9 (0.8-1.1) Activated Partial Thromboplast Time 30 SEC (24-38) Sodium Level 140 mmol/L (136-145) 140 mmol/L (136-145) Potassium Level 3.7 mmol/L (3.5-5.1) 3.2 mmol/L (3.5-5.1) Chloride Level 106 mmol/L (98-107) 108 mmol/L (98-107) Carbon Dioxide Level 27 mmol/L (21-32) 26 mmol/L (21-32) Anion Gap 7 (6-14) 6 (6-14) Blood Urea Nitrogen 5 mg/dL (7-20) 5 mg/dL (7-20) Creatinine 1.1 mg/dL (0.6-1.0) 0.9 mg/dL (0.6-1.0) Estimated GFR (Cockcroft-Gault) 60.9 76.8 BUN/Creatinine Ratio 5 (6-20) 6 (6-20) Glucose Level 97 mg/dL (70-99) 75 mg/dL (70-99) Calcium Level 9.2 mg/dL (8.5-10.1) 8.3 mg/dL (8.5-10.1) Magnesium Level 2.2 mg/dL (1.8-2.4) Total Bilirubin 0.2 mg/dL (0.2-1.0) 0.3 mg/dL (0.2-1.0) Aspartate Amino Transf (AST/SGOT) 18 U/L (15-37) 20 U/L (15-37) Alanine Aminotransferase (ALT/SGPT) 19 U/L (14-59) 18 U/L (14-59) Alkaline Phosphatase 99 U/L (46-116) 86 U/L (46-116) Troponin I Quantitative < 0.017 ng/mL (0.000-0.055) Total Protein 7.1 g/dL (6.4-8.2) 6.5 g/dL (6.4-8.2) Albumin 3.0 g/dL (3.4-5.0) 2.7 g/dL (3.4-5.0) Albumin/Globulin Ratio 0.7 (1.0-1.7) 0.7 (1.0-1.7) Lipase 104 U/L (73-393) Test 08/12/18 09:00 White Blood Count 10.9 x10^3/uL (4.0-11.0) Red Blood Count 4.05 x10^6/uL (3.50-5.40) Hemoglobin 12.6 g/dL (12.0-15.5) Hematocrit 36.9 % (36.0-47.0) Mean Corpuscular Volume 91 fL (79-100) Mean Corpuscular Hemoglobin 31 pg (25-35) Mean Corpuscular Hemoglobin Concent 34 g/dL (31-37) Red Cell Distribution Width 15.0 % (11.5-14.5) Platelet Count 228 x10^3/uL (140-400) Neutrophils (%) (Auto) 66 % (31-73) Lymphocytes (%) (Auto) 25 % (24-48) Monocytes (%) (Auto) 9 % (0-9) Eosinophils (%) (Auto) 0 % (0-3) Basophils (%) (Auto) 0 % (0-3) Neutrophils # (Auto) 7.2 x10^3uL (1.8-7.7) Lymphocytes # (Auto) 2.7 x10^3/uL (1.0-4.8) Monocytes # (Auto) 1.0 x10^3/uL (0.0-1.1) Eosinophils # (Auto) 0.0 x10^3/uL (0.0-0.7) Basophils # (Auto) 0.0 x10^3/uL (0.0-0.2) Sodium Level 138 mmol/L (136-145) Potassium Level 3.8 mmol/L (3.5-5.1) Chloride Level 103 mmol/L (98-107) Carbon Dioxide Level 28 mmol/L (21-32) Anion Gap 7 (6-14) Blood Urea Nitrogen 3 mg/dL (7-20) Creatinine 0.8 mg/dL (0.6-1.0) Estimated GFR (Cockcroft-Gault) 87.9 Glucose Level 90 mg/dL (70-99) Calcium Level 8.6 mg/dL (8.5-10.1) Laboratory Tests Test 08/12/18 09:00 White Blood Count 10.9 x10^3/uL (4.0-11.0) Red Blood Count 4.05 x10^6/uL (3.50-5.40) Hemoglobin 12.6 g/dL (12.0-15.5) Hematocrit 36.9 % (36.0-47.0) Mean Corpuscular Volume 91 fL (79-100) Mean Corpuscular Hemoglobin 31 pg (25-35) Mean Corpuscular Hemoglobin Concent 34 g/dL (31-37) Red Cell Distribution Width 15.0 % (11.5-14.5) Platelet Count 228 x10^3/uL (140-400) Neutrophils (%) (Auto) 66 % (31-73) Lymphocytes (%) (Auto) 25 % (24-48) Monocytes (%) (Auto) 9 % (0-9) Eosinophils (%) (Auto) 0 % (0-3) Basophils (%) (Auto) 0 % (0-3) Neutrophils # (Auto) 7.2 x10^3uL (1.8-7.7) Lymphocytes # (Auto) 2.7 x10^3/uL (1.0-4.8) Monocytes # (Auto) 1.0 x10^3/uL (0.0-1.1) Eosinophils # (Auto) 0.0 x10^3/uL (0.0-0.7) Basophils # (Auto) 0.0 x10^3/uL (0.0-0.2) Sodium Level 138 mmol/L (136-145) Potassium Level 3.8 mmol/L (3.5-5.1) Chloride Level 103 mmol/L (98-107) Carbon Dioxide Level 28 mmol/L (21-32) Anion Gap 7 (6-14) Blood Urea Nitrogen 3 mg/dL (7-20) Creatinine 0.8 mg/dL (0.6-1.0) Estimated GFR (Cockcroft-Gault) 87.9 Glucose Level 90 mg/dL (70-99) Calcium Level 8.6 mg/dL (8.5-10.1) Brief Hospital Course Ms. Beltran is a 63 old Citizen Of [place] female admitted because of bloody BM for 7 days but hemodynamically stable. Her symptoms were fatigue. On CAT scan showed long segment colitis. Getting IV antibiotics here. Wants to go home, tolerating clears. Hemoglobin stable. Never hypotensive or tachycardic. GI is thinking about a colonoscopy. Although she just had one by Dr. jaquez one year ago, we will await if okay to IN today. Otherwise have Rx'd antibiotics for 14 days total on chart Patient seen and examined, discussed with RN at bedside and husbnad consults: GI Proc none so far Discharge Information Condition at Discharge: Improved, Stable Disposition/Orders: D/C to Home Scheduled Diltiazem Hcl (Cardizem Tablet) 60 Mg Tablet, 60 MG PO BID for FOR HYPERTENSION , #30 Ref 0 (Reported) Entered as Reported by: PEDRO WILSON on 05/10/18 1210 Last Action: Converted on 08/10/182024 by JULIET RIZVI Ergocalciferol (Vitamin D2) (Vitamin D2) 50,000 Unit Capsule, 1 CAP PO WEEKLY, # 4 Ref 5 (Reported) Entered as Reported by: LINDA BYRNE on 04/04/16 1140 Last Action: Continued on 08/10/182024 by JULIET RIZVI Folic Acid (Folic Acid) 1 Mg Tablet, 1 TAB PO DAILY, #90 Ref 1 (Reported) Entered as Reported by: LINDA BYRNE on 04/04/16 1141 Last Action: Continued on 08/10/182024 by JULIET RIZVI Loratadine (Loratadine) 10 Mg Tablet, 10 MG PO DAILY, (Reported) Entered as Reported by: LINDA BYRNE on 04/04/16 1141 Last Action: Converted on 08/10/182024 by JULIET RIZVI Magnesium Oxide (Magnesium Oxide) 400 Mg Tablet, 400 MG PO DAILY, (Reported) Entered as Reported by: LINDA BYRNE on 04/04/16 1140 Last Action: Converted on 08/10/182024 by JULIET RIZVI Nitrofurantoin Monohyd/M-Cryst (Macrobid 100 Mg Capsule) 100 Mg Capsule, 1 CAP PO BID, #14 Prescribed by: STEPHANIE PERALTA on 12/24/17 2331 Last Action: HELD on 08/10/182024 by JULIET RIZVI Oxycodone/Apap 10-325 (Percocet 10-325 Mg Tablet) 1 Each Tablet, 1 TAB PO Q4- 6HRS, #40 (Reported) Entered as Reported by: PEDRO WILSON on 01/20/18 0839 Last Action: Continued on 08/10/182024 by JULIET RIZVI Scheduled PRN Albuterol Sulfate (Proair Hfa Inhaler) 8.5 Gm Hfa.aer.ad, 1 PUFF INH PRN Q6HRS PRN for SHORTNESS OF BREATH, Ref 0 (Reported) Entered as Reported by: LINDA BYRNE on 04/04/16 1144 Last Action: Converted on 08/10/182024 by JULIET RIZVI Albuterol Sulfate (Proair Hfa Inhaler) 8.5 Gm Hfa.aer.ad, 1 PUFF INH PRN Q6HRS PRN for SHORTNESS OF BREATH for 5 Days, Ref 0 Prescribed by: ROMULO RODRIGUEZ MD on 12/19/172158 Last Action: Converted on 08/10/182024 by JULIET RIZVI Meclizine Hcl (Meclizine Hcl) 25 Mg Tablet, 25 MG PO Q6-8HRS PRN for DIZZINESS, #20 Prescribed by: SUJEY DE LA CRUZ on 02/13/182301 Last Action: Converted on 08/10/182024 by JULIET RIZVI Ondansetron (Zofran Odt) 4 Mg Tab.rapdis, 4 MG PO BID PRN for NAUSEA/VOMITING, ( Reported) Entered as Reported by: LINDA BYRNE on 04/04/16 1142 Last Action: Continued on 08/10/182024 by JULIET RIZVI Miscellaneous Medications Linaclotide (Linzess) 145 Mcg Capsule, 145 MCG PO, (Reported) Entered as Reported by: SOHAIL ROGERS on 11/24/17 0909 Last Action: HELD on 08/10/182024 by JULIET LANCASTER MD Aug 12, 2018 10:28
[2018-08-12] MEDS ORDERED: LEVO500T59 PO (10:32)
[2018-08-12] MEDS ORDERED: OXYC-328 PO (10:32)
[2018-08-12] MEDS ORDERED: METR500T PO (10:32)
--- NOTE | 2018-08-12 10:44 | DISCH ---
DISCHARGE WITH HOME HEALTH DISCHARGE INFORMATION: Condition on Discharge: Stable CODE STATUS: Code Status: Full HOME HEALTH: Face to Face: I certify this patient is under my care and that I, or a nurse practitioner or physician's life enrichment assistant working with me, had a face to face encounter that meets the physician face to face encounter requirements with this patient on []. Medical Complications: Other (long segment colitis) Physical Therapy For: Evalulation/Treatment Occupational Therapy For: Evaluation/Treatment Home Health Aide For: Self-care CHECKS AFTER DISCHARGE: Checks after discharge: Check blood press - daily TREATMENT/EQUIPMENT ORDERS: Adaptive Equipment Issued: None CERTIFICATION STATEMENT: Certification Statement: Certification Statement: Based on the above finding, I certify that this patient is confined to the home and needs intermittent group home care, physical therapy and/or speech therapy, or continues to need occupational therapy.~ This patient is under my care, and I have initiated the establishment of the plan of care.~ This patient will be followed by myself or a community physician who will periodically review the plan of care. Home Meds Active Scripts Metronidazole (FLAGYL) 500 Mg Tablet, 500 MG PO TID for 14 Days, #42 TAB Prov:JULIET RIZVI MD 08/12/18 Levofloxacin (LEVAQUIN) 500 Mg Tablet, 1 TAB PO DAILY, #14 TAB Prov:JULIET RIZVI MD 08/12/18 Oxycodone/Apap 10-325 (PERCOCET 10-325 MG TABLET) 1 Each Tablet, 1 TAB PO Q4- 6HRS, #15 TAB Prov:JULIET RIZVI MD 08/12/18 Meclizine Hcl (MECLIZINE HCL) 25 Mg Tablet, 25 MG PO Q6-8HRS PRN for DIZZINESS, #20 TAB Prov:SUJEY DE LA CRUZ MD 02/13/18 Nitrofurantoin Monohyd/M-Cryst (MACROBID 100 MG CAPSULE) 100 Mg Capsule, 1 CAP PO BID, #14 CAP Prov:STEPHANIE PERALTA MD 12/24/17 Albuterol Sulfate (PROAIR HFA INHALER) 8.5 Gm Hfa.aer.ad, 1 PUFF INH PRN Q6HRS PRN for SHORTNESS OF BREATH for 5 Days, INHALER 0 Refills Prov:ROMULO SHELLEY MD 12/19/17 Reported Medications Diltiazem Hcl (CARDIZEM TABLET) 60 Mg Tablet, 60 MG PO BID for FOR HYPERTENSION , #30 TAB 0 Refills 05/10/18 Linaclotide (LINZESS) 145 Mcg Capsule, 145 MCG PO, CAP 11/24/17 Albuterol Sulfate (PROAIR HFA INHALER) 8.5 Gm Hfa.aer.ad, 1 PUFF INH PRN Q6HRS PRN for SHORTNESS OF BREATH, INHALER 0 Refills 04/04/16 Ondansetron (ZOFRAN ODT) 4 Mg Tab.rapdis, 4 MG PO BID PRN for NAUSEA/VOMITING, TAB 04/04/16 Loratadine (LORATADINE) 10 Mg Tablet, 10 MG PO DAILY 04/04/16 Folic Acid (FOLIC ACID) 1 Mg Tablet, 1 TAB PO DAILY, #90 TAB 1 Refill 04/04/16 Magnesium Oxide (MAGNESIUM OXIDE) 400 Mg Tablet, 400 MG PO DAILY 04/04/16 Ergocalciferol (Vitamin D2) (VITAMIN D2) 50,000 Unit Capsule, 1 CAP PO WEEKLY, # 4 CAP 5 Refills 04/04/16 JULIET RIZVI MD Aug 12, 2018 10:44
[2018-08-12 11:00] VITALS: BP 161/102
[2018-08-12] MEDS ORDERED: cloNIDine HCL 0.1 MG TABLET PO ONE (11:15)
--- NOTE | 2018-08-12 11:28 | PDOC ---
Subjective: Subjective: No bleeding. Had a normal stool yesterday. Denies abd pain. Tolerating liquids. Wants to go home. Tells me sometimes she has nocturnal reflux and chokes during the night - thinks this has increased since her EGD w/ dilation with Dr. Mancuso last year. Objective: Vital Signs: Vital Signs Date Time Temp Pulse Resp B/P (MAP) Pulse Ox O2 Delivery O2 Flow Rate FiO2 08/12/18 08:31 0 Room Air 08/12/18 08:26 98 163/95 08/12/18 07:00 96.4 85 2.0 96.4 Labs: Laboratory Tests Test 08/12/18 09:00 White Blood Count 10.9 x10^3/uL Red Blood Count 4.05 x10^6/uL Hemoglobin 12.6 g/dL Hematocrit 36.9 % Mean Corpuscular Volume 91 fL Mean Corpuscular Hemoglobin 31 pg Mean Corpuscular Hemoglobin Concent 34 g/dL Red Cell Distribution Width 15.0 % Platelet Count 228 x10^3/uL Neutrophils (%) (Auto) 66 % Lymphocytes (%) (Auto) 25 % Monocytes (%) (Auto) 9 % Eosinophils (%) (Auto) 0 % Basophils (%) (Auto) 0 % Neutrophils # (Auto) 7.2 x10^3uL Lymphocytes # (Auto) 2.7 x10^3/uL Monocytes # (Auto) 1.0 x10^3/uL Eosinophils # (Auto) 0.0 x10^3/uL Basophils # (Auto) 0.0 x10^3/uL Erythrocyte Sedimentation Rate 57 Sodium Level 138 mmol/L Potassium Level 3.8 mmol/L Chloride Level 103 mmol/L Carbon Dioxide Level 28 mmol/L Anion Gap 7 Blood Urea Nitrogen 3 mg/dL Creatinine 0.8 mg/dL Estimated GFR (Cockcroft-Gault) 87.9 Glucose Level 90 mg/dL Calcium Level 8.6 mg/dL PE: GEN: NAD LUNGS: CTAB HEART: RRR ABD: NABS, S/ND/NT NEURO/PSYCH: A & O 3 A/P: Hematochezia, LLQ pain - resolved Left-sided colitis on CT GERD -- Symptoms improved w/ stable labs - she would like to leave. DC per primary. She would like to establish her GI care with our office. I will ask our office to request records of previous 'scopes from Dr. Mancuso and also to schedule a follow-up visit. Continue PPI. RIKKI HERNANDEZ Aug 12, 2018 11:28
[2018-08-12 15:00] VITALS: BP 124/75
[2018-08-17] MEDS ORDERED: ERGOCALCIFEROL (VITAMIN D2) 50,000 UNIT CAPSULE. PO SCH (09:00)
== END 2018-08-12 15:45 | disposition home health service (06) | DRG 386 ==
LOC: ER 15:20 → 5 NORTH 19:20
PROVIDERS: ADMIT Internal Medicine; ATTEND Internal Medicine
DX: K51.50 Left sided colitis without complications (principal); E44.0 Moderate protein-calorie malnutrition; K21.9 Gastro-esophageal reflux disease without esophagitis; J44.9 Chronic obstructive pulmonary disease, unspecified; I10 Essential (primary) hypertension; M79.7 Fibromyalgia; H40.9 Unspecified glaucoma; E78.5 Hyperlipidemia, unspecified; F17.210 Nicotine dependence, cigarettes, uncomplicated; E78.00 Pure hypercholesterolemia, unspecified; M54.30 Sciatica, unspecified side; E87.6 Hypokalemia; G89.29 Other chronic pain; Z82.49 Family history of ischemic heart disease and other diseases of the circulatory system; Z88.6 Allergy status to analgesic agent; Z79.82 Long term (current) use of aspirin; Z90.710 Acquired absence of both cervix and uterus; Z90.49 Acquired absence of other specified parts of digestive tract; Z68.27 Body mass index [BMI] 27.0-27.9, adult
CPT/HCPCS: 36415; 74177; 80048; 80053; 81001; 82274; 83690; 83735; 84484; 85025; 85610; 85651; 85730; 93005; 94640; 94760; 96365; 99406; C9113; J1200; J1956; J2405; J3010; J3480; J3490; J7030; J7613; Q0162; Q9967; 99285-25

== ENCOUNTER → 2019-08-09 | Outpatient (CLI) | payer OTHER ==
[~2019-08-09] MED LIST changes: +ALBU2.5V8 INH; +HYDR-3164 PO; -HYDR-971 PO; +LEVO500T59 PO; -LINA145C PO; +LINZESS145 MCG PO; +METR500T PO; -OXYC-328 PO; +OXYC1TAB22 PO; -OXYC30TA PO; +OXYC30TA3 PO; -PROAIR HFA8.5 GM INH
--- NOTE | 2019-08-10 00:27 | PAIN ---
DATE OF SERVICE: 08/09/2019 PROGRESS NOTE FOR PAIN CLINIC DIAGNOSES: 1. Lumbar radiculopathy with lumbar degenerative disk disease. 2. Cervical radiculopathy with cervical degenerative disk disease. HISTORY OF PRESENT ILLNESS: The patient is a 64-year-old female who returns for followup status post lumbar epidural steroid injection, last seen on 06/07/2018. The patient had lumbar epidural steroid injection at that time with good improvement about 75% improvement, although she reports that in the meantime, she has been seen at [facility], had 1 epidural, which made her pain worse. The patient reports significant pain in the low back, bilateral lower extremities, mostly into the posterior gluteus, posterior thighs, posterior calves as well as in the base of the neck and shoulders, upper extremities, radiating to posterior deltoid; upper arms; posterior triceps and into the forearms and hands with numbness and tingling in both the hands. The patient reports her pain is a 10 on a scale of 10 at its worst, 3 on average and is a 10 on a scale of 10 today. The patient reports it is aching, sharp, tight, shooting, tingling, burning, stabbing, constant, severe, and unbearable at times. The patient reports no loss of motor function, but significantly fatigued in the lower extremities with activity. The patient reports she fell on her back recently this morning. The patient reports it is awakening her from sleep at night several times between the neck and shoulders and upper extremities as well as the low back and lower extremities. PHYSICAL EXAMINATION: VITAL SIGNS: The patient's blood pressure 122/78, pulse 72, respirations 18, temperature is 98.0 degrees Fahrenheit, height is 5 feet 4 inches. GENERAL: The patient is awake, alert, oriented, appropriate, very pleasant demeanor. HEENT: Shows normocephalic, atraumatic. Extraocular movements are intact and symmetrical. Oral cavity, mucous membranes are moist and pink. Dentition is intact. NECK: Shows anterior throat supple without palpable lymphadenopathy noted. Swallow reflex is symmetrical. CHEST: Shows normal on inspection. Breath sounds clear to auscultation bilaterally. HEART: Shows S1, S2 clear. No murmurs auscultated. ABDOMEN: Soft, obese, nontender, nondistended. BACK: Shows spine grossly in the midline. Cervical paraspinous muscle shows symmetrical on inspection, with palpation shows some moderate tenderness diffusely bilaterally and into the superior medial trapezius as well. Lumbar paraspinous muscle shows symmetrical on inspection, with palpation shows some moderate tenderness diffusely in the middle, upper and lower distribution of paraspinous muscles throughout bilaterally, but only without radiation. The patient shows good rotational motion of the cervical spine and lumbar spines without significant increase in pain. EXTREMITIES: The patient's upper extremities show deep tendon reflexes 2+ in the biceps, triceps tendons. Motor exam is strong with retail administrative assistant strength rated at 4/5, but symmetrical and equal bilaterally. Peripheral pulses are 2+. Lower extremities show deep tendon reflexes 2+ in the patellar, 1+ in the tendo-calcaneus tendons. Motor exam is approximately 4 on a scale of 5 on the right, 5/5 on the left with dorsiflexion, extension, quadriceps and hamstring flexion. Peripheral pulses are 1+ in the posterior tibia. No peripheral edema is noted as well. PLAN: Options were discussed with the patient. The patient's old chart was reviewed as her current medication regimen updated. Current review of systems updated today as well. We will preauthorize the patient for a lumbar epidural steroid injection for significant radicular pain in bilateral lower extremities following an L5-S1 dermatomal distribution, she has done very well with these in the past. We will schedule for a lumbar epidural steroid injection in approximately 2 weeks. In the meantime, we will try a Medrol Dosepak. The patient was given instruction as well as side effects to be aware of with the medication. If she does significantly better after the lumbar epidural steroid injection, we may, depending on her symptoms preauthorize for cervical epidural steroid injection in the future. The patient will return to the clinic. We will plan on lumbar epidural steroid injection on her return. JEWELS CONCEPCION MD DR: JOAN/judy JOB#: [id number] / [id number]
== END | disposition home or self-care (01) ==
LOC: PNCL 10:55
PROVIDERS: ATTEND Anesthesiology
DX: M51.16 Intervertebral disc disorders with radiculopathy, lumbar region (principal); M50.10 Cervical disc disorder with radiculopathy, unspecified cervical region
CPT/HCPCS: G0463

== ENCOUNTER 2019-11-29 15:22 | Emergency (ER) | payer OTHER ==
[~2019-11-29] VITALS: Ht 162.6 cm; Wt 82.6 kg
[~2019-11-29 15:22] MED LIST changes: -MAGN400T3 PO; +MAGN400T5 PO; +MECL-75 PO; -MECL25TA3 PO
[2019-11-29 15:25] VITALS: BP 182/104
[2019-11-29] MEDS ORDERED: diphenhydrAMINE 50 MG/ML VIAL IVP ONE (16:00)
[2019-11-29] MEDS ORDERED: diphenhydrAMINE HCL 25 MG CAPSULE PO ONE (16:00)
[2019-11-29] MEDS ORDERED: DEXAMETHASONE 4 MG TABLET PO ONE (16:00)
[2019-11-29] MEDS ORDERED: FAMOTIDINE 20 MG TABLET. PO ONE (16:00)
[2019-11-29] MEDS ORDERED: FAMOTIDINE 20 MG/2 ML VIAL IVP ONE (16:00)
--- NOTE | 2019-11-29 16:06 | PHYS DOC ---
Past Medical History Past Medical History: Asthma, COPD, GERD, High Cholesterol, Hypertension, Pneumonia, Sciatica Additional Past Medical Histor: Degenerative Glaucoma, muscle spasms leg/feet, lower back pain Past Surgical History: Cholecystectomy, Hysterectomy Additional Past Surgical Histo: INTESTINE SX, RIGHT OVARY Alcohol Use: Sober Drug Use: None Adult General Chief Complaint Chief Complaint: ALLERGIC REACTION HPI HPI Patient is a 64 year old female with PMH of HTN, HLD who presents with pruritis. Pt reports she felt pruritic on her arms, upper back and torso for 2 days ago and does not know what was the cause. Denies any new food, medication, supplement ingestion nor changing in laundry. Pt denies any throat, lip swelling, or SOB at rest or wheals. Pt tried some OTC topical cream without any relieve. She also feel nauseated. Denies any chest pain, palpitation at baseline. Pt reports having history of high liver enzymes in the 4000s but unsure that was the cause or diagnosis. It just "goes away on it own." Denies any recent travel, sick contact. Review of Systems Review of Systems Constitutional: Denies fever or chills Eyes: Denies redness or eye pain HENT: Denies nasal congestion or sore throat Respiratory: Denies cough or shortness of breath Cardiovascular: Denies chest pain or palpitations GI: Denies abdominal pain, nausea, or vomiting : Denies dysuria or hematuria Musculoskeletal: Denies back pain or joint pain Integument: Denies rash or skin lesions Neurologic: Denies headache, focal weakness or sensory changes Complete systems were reviewed and found to be within normal limits, except as documented in this note. Current Medications Current Medications Current Medications Medications (Trade) Dose Ordered Sig/Steven Start Time Stop Time Status Last Admin Dose Admin Dexamethasone (Decadron) 10 mg 1X ONCE 11/29/19 16:00 11/29/19 16:05 DC 11/29/19 16:05 10 MG Diphenhydramine HCl (Benadryl) 25 mg 1X ONCE 11/29/19 16:00 11/29/19 16:05 DC 11/29/19 16:05 25 MG Famotidine (Pepcid Vial) 20 mg 1X ONCE 11/29/19 16:00 11/29/19 16:05 DC 11/29/19 16:05 20 MG Famotidine (Pepcid) 20 mg 1X ONCE 11/29/19 16:00 11/29/19 15:54 DC Allergies Allergies Allergies Coded Allergies Type Severity Reaction Last Updated Verified aspirin Adverse Reaction Intermediate gi upset 06/16/16 Yes Physical Exam Physical Exam Constitutional: Well developed, well nourished, no acute distress, non-toxic appearance HENT: Normocephalic, atraumatic, oropharynx moist, no erythema or edema in her pharynx Eyes: PERRL, EOMI, conjunctiva normal, no discharge Neck: Normal range of motion, no tenderness, supple Cardiovascular: Heart rate normal, regular rhythm Lungs & Thorax: Bilateral breath sounds clear to auscultation, no wheezing Abdomen: Soft, no tenderness Skin: Warm, dry, mild erythema on bilateral upper back, shoulders and arms, no rash Back: No tenderness, no CVA tenderness Extremities: No tenderness, ROM intact, no edema Neurologic: Alert and oriented X 3, normal motor function, normal sensory function, no focal deficits noted Psychologic: Affect normal, judgement normal, mood normal Current Patient Data Vital Signs Vital Signs Date Time Temp Pulse Resp B/P (MAP) Pulse Ox O2 Delivery O2 Flow Rate FiO2 11/29/19 15:25 97.5 86 18 182/104 (130) 95 Room Air 97.5 Lab Values Laboratory Tests Test 11/29/19 16:00 White Blood Count 9.3 x10^3/uL (4.0-11.0) Red Blood Count 4.39 x10^6/uL (3.50-5.40) Hemoglobin 12.6 g/dL (12.0-15.5) Hematocrit 38.6 % (36.0-47.0) Mean Corpuscular Volume 88 fL (79-100) Mean Corpuscular Hemoglobin 29 pg (25-35) Mean Corpuscular Hemoglobin Concent 33 g/dL (31-37) Red Cell Distribution Width 14.5 % (11.5-14.5) Platelet Count 231 x10^3/uL (140-400) Neutrophils (%) (Auto) 44 % (31-73) Lymphocytes (%) (Auto) 44 % (24-48) Monocytes (%) (Auto) 10 % (0-9) H Eosinophils (%) (Auto) 1 % (0-3) Basophils (%) (Auto) 1 % (0-3) Neutrophils # (Auto) 4.0 x10^3/uL (1.8-7.7) Lymphocytes # (Auto) 4.1 x10^3/uL (1.0-4.8) Monocytes # (Auto) 0.9 x10^3/uL (0.0-1.1) Eosinophils # (Auto) 0.1 x10^3/uL (0.0-0.7) Basophils # (Auto) 0.1 x10^3/uL (0.0-0.2) Prothrombin Time 12.6 SEC (11.7-14.0) Prothrombin Time INR 1.0 (0.8-1.1) Activated Partial Thromboplast Time 36 SEC (24-38) Sodium Level 139 mmol/L (136-145) Potassium Level 3.9 mmol/L (3.5-5.1) Chloride Level 103 mmol/L (98-107) Carbon Dioxide Level 26 mmol/L (21-32) Anion Gap 10 (6-14) Blood Urea Nitrogen 11 mg/dL (7-20) Creatinine 1.0 mg/dL (0.6-1.0) Estimated GFR (Cockcroft-Gault) 67.8 BUN/Creatinine Ratio 11 (6-20) Glucose Level 92 mg/dL (70-99) Calcium Level 9.5 mg/dL (8.5-10.1) Magnesium Level 1.9 mg/dL (1.8-2.4) Total Bilirubin 0.6 mg/dL (0.2-1.0) Aspartate Amino Transferase (AST) 68 U/L (15-37) H Alanine Aminotransferase (ALT) 93 U/L (14-59) H Alkaline Phosphatase 153 U/L (46-116) H Total Protein 8.3 g/dL (6.4-8.2) H Albumin 3.7 g/dL (3.4-5.0) Albumin/Globulin Ratio 0.8 (1.0-1.7) L Laboratory Tests 11/29/19 16:00 Laboratory Tests 11/29/19 16:00 EKG EKG [] Radiology/Procedures Radiology/Procedures [] Course & Med Decision Making Course & Med Decision Making Pertinent Labs and Imaging studies reviewed. (See chart for details) Patient is a 64 year old female with PMH of HTN, HLD who presents with pruritis. DDx: allergic reaction, hepatobiliary etiologies. Will order labs and provide supportive treatment at bedside with pepcid, steroid and antihistamine. Will reassess. Though pt's LFT shows slightly elevated ALT and AST, total bili was in normal range -> the pruritis is less likely due to hepatobilitary cause. So it's most likely a generalized pruritis. Will provide supportive care and discharge with return precaution [] Dragon Disclaimer Dragon Disclaimer This electronic medical record was generated, in whole or in part, using a voice recognition dictation system. Departure Departure Impression: Primary Impression: Generalized pruritus Disposition: HOME, SELF-CARE Condition: STABLE Referrals: UNKNOWN PCP NAME (PCP) Patient Instructions: Pruritus Scripts Famotidine (PEPCID) 20 Mg Tablet 20 MG PO BID, #14 TAB Prov: SUJEY WILSON DO 11/29/19 Diphenhydramine Hcl (BENADRYL) 25 Mg Capsule 1 CAP PO Q4-6HRS PRN for ITCHING, #14 CAP 0 Refills Prov: SUJEY WILSON DO 11/29/19 Prednisone (PREDNISONE) 20 Mg Tablet 2 TAB PO DAILY, #8 TAB Start this prescription tomorrow, 11/30/19. Prov: SUJEY WILSON DO 11/29/19 SUJEY WILSON DO Nov 29, 2019 16:06
[2019-11-29 16:13] LABS: BASO # 0.1 x10^3/uL (0.0-0.2); BASO % 1 % (0-3); EOS # 0.1 x10^3/uL (0.0-0.7); EOS % 1 % (0-3); HEMATOCRIT 38.6 % (36.0-47.0); HEMOGLOBIN 12.6 g/dL (12.0-15.5); LYMPH # 4.1 x10^3/uL (1.0-4.8); LYMPH % 44 % (24-48); MEAN CORPUSCULAR HEMOGLOBIN 29 pg (25-35); MEAN CORPUSCULAR HGB CONC 33 g/dL (31-37); MEAN CORPUSCULAR VOLUME 88 fL (79-100); MONO # 0.9 x10^3/uL (0.0-1.1); MONO % 10 % (0-9); NEUT % 44 % (31-73); PLATELET COUNT 231 x10^3/uL (140-400); RED BLOOD COUNT 4.39 x10^6/uL (3.50-5.40); RED CELL DISTRIBUTION WIDTH 14.5 % (11.5-14.5); WHITE BLOOD COUNT 9.3 x10^3/uL (4.0-11.0)
[2019-11-29 16:24] LABS: PROTHROMBIN TIME PATIENT 12.6 SEC (11.7-14.0)
[2019-11-29 16:32] LABS: CALCIUM 9.5 mg/dL (8.5-10.1); GFR 67.8; POTASSIUM 3.9 mmol/L (3.5-5.1)
[2019-11-29 16:38] LABS: ALBUMIN 3.7 g/dL (3.4-5.0); ALBUMIN/GLOBULIN RATIO 0.8 (1.0-1.7); MAGNESIUM 1.9 mg/dL (1.8-2.4); TOTAL BILIRUBIN 0.6 mg/dL (0.2-1.0); TOTAL PROTEIN 8.3 g/dL (6.4-8.2)
[2019-11-29] MEDS ORDERED: FAMO-63 PO (16:58)
[2019-11-29] MEDS ORDERED: DIPH25CA58 PO (16:58)
[2019-11-29] MEDS ORDERED: PRED20TA PO (16:58)
== END 2019-11-29 17:01 | disposition home or self-care (01) ==
LOC: ER 15:22
DX: L29.9 Pruritus, unspecified (principal); R11.0 Nausea; J44.9 Chronic obstructive pulmonary disease, unspecified; K21.9 Gastro-esophageal reflux disease without esophagitis; E78.00 Pure hypercholesterolemia, unspecified; I10 Essential (primary) hypertension; Z88.6 Allergy status to analgesic agent
CPT/HCPCS: 36415; 80053; 83735; 85025; 85610; 85730; 96374; 96375; 99284; J1200; J3490; J8540

== ENCOUNTER → 2020-02-01 | Outpatient (CLI) | payer OTHER ==
[~2020-02-01] MED LIST changes: +DIPH25CA58 PO; +FAMO-63 PO
--- NOTE | 2020-02-01 14:15 | RAD ---
History: 64 year old woman due for screening but presenting with bilateral stabbing diffuse breast pain for a year. Technique: Bilateral digital mammographic routine views were obtained with CAD - computer aided detection. Comparison: 03/12/2019. Findings: Breast Tissue Density C : The breast tissue is heterogeneously dense. Scattered fibroglandular elements may obscure underlying pathology. There are no suspicious masses, microcalcifications or areas of architectural distortion. Nodular parenchymal pattern compatible with benign fibrocystic change. Patient came prepared for a breast ultrasound exam but there was no medical indication for it so it was deferred in favor of clinical management. Impression: No suspicious findings. BI-RADS Category 2: Benign. Normal interval followup and clinical management of bilateral breast pain. Your mammogram demonstrates that you have dense breast tissue, which could hide abnormalities, and if you have other risk factors for breast cancer that have been identified, you might benefit from supplemental screening tests that may be suggested by your ordering physician. Dense breast tissue, in and of itself, is a relatively common condition. This information is not provided to cause undue concern, but rather to raise your awareness and to promote discussion with your physician regarding the presence of other risk factors, in addition to dense breast tissue. A report of your mammography results will be sent to you and your physician. You should contact your physician if you have any questions or concerns regarding this report. A mammogram does not have 100% sensitivity and therefore a negative imaging study should not delay further work up of a suspicious abnormality. The patient will receive a letter with the results in the mail. Patient information is entered into the reminder system with a target due date for the next screening mammogram. The patient will receive a reminder. "Our facility is accredited by the [employer] Mammography Program."
== END ==
LOC: MAMMO 13:05
PROVIDERS: ATTEND Internal Medicine
DX: R92.2 Inconclusive mammogram (principal); J44.9 Chronic obstructive pulmonary disease, unspecified; J20.9 Acute bronchitis, unspecified; M19.90 Unspecified osteoarthritis, unspecified site; G89.29 Other chronic pain; I10 Essential (primary) hypertension; K59.00 Constipation, unspecified
CPT/HCPCS: 77066